=== PATIENT | female | born 1985 ===

== ENCOUNTER 2020-09-22 10:39 | Emergency (ER) | payer MEDICAID, SELFPAY ==
--- NOTE | ~2020-09-22 | CT_ITS ---
EXAMINATION: CT ABDOMEN AND PELVIS WITHOUT CONTRAST CLINICAL INFORMATION: Hematuria. Flank pain. COMPARISON: Most recent prior CT of the abdomen and pelvis done on 08/20/2018. TECHNIQUE: Multidetector volumetric imaging was performed from the superior aspect of the liver through the pubic symphysis. Sagittal and coronal reformatted images were obtained on the technologist's workstation. This CT examination was performed using dose optimization techniques as appropriate, variously including the following: *Automated exposure control *Adjustment of mA and/or kV according to patient size (this includes techniques or standardized protocols for targeted exams where dose is matched to indication/reason for exam; i.e. extremities or head) *Use of iterative reconstruction technique DLP: 1039.0 mGy-cm FINDINGS: LUNG BASES: The visualized lung bases are unremarkable. LIVER, GALLBLADDER, AND BILIARY TREE: The liver is normal in size, shape, and attenuation. No focal hepatic lesion or biliary ductal dilatation is present. The gallbladder is surgically absent. PANCREAS: Unremarkable. SPLEEN: Unremarkable. ADRENAL GLANDS: Unremarkable. KIDNEYS AND URETERS: The kidneys are normal in size, shape, and attenuation. No perinephric stranding. Bilateral punctate 1 mm or smaller nonobstructing renal calculi are noted without evidence of any obstruction. BLADDER: Suboptimally distended, grossly unremarkable. GASTROINTESTINAL TRACT: Colonic diverticulosis related changes are noted within the sigmoid colon. The remainder of the large bowel is unremarkable. The appendix is visualized at right lower quadrant and is unremarkable. The small bowel loops are decompressed. The stomach is decompressed. ABDOMINAL WALL: No significant hernia is appreciated. LYMPH NODES: Normal. VASCULAR: Unremarkable. PELVIC VISCERA: There is no pelvic mass present. There is no free fluid and/or free air present. OSSEOUS STRUCTURES: Unremarkable. CT/CT abdomen pelvis wo con IMPRESSION: Tiny punctate bilateral nonobstructing renal calculi without evidence of any obstruction. Colonic diverticulosis. Surgically absent gallbladder and decompressed biliary tree.
[2020-09-22 10:52] VITALS: RESP 16; TEMP 36.8; O2SAT 99; BMI 44.2
--- NOTE | 2020-09-22 10:54 | PC.NURSE ---
unable to obtain bp pt had to run to bathroom
[2020-09-22 11:52] LABS: MANUAL DIFF FLAG NO
[2020-09-22 11:58] LABS: Basophils Absolute Auto 0.1 X10*3/uL (0.0-0.2); Basophils Percent Auto 0.4 % (0-2); Eosinophils Absolute Auto 0.2 X10*3/uL (0.0-0.4); Eosinophils Percent Auto 1.1 % (0-4); Hematocrit 43.6 % (37-47); Hemoglobin 14.8 g/dl (12.0-16.0); Imm Gran Abs Auto 0.05 X10*3/uL (0.00-0.03); Imm Gran Pct Auto 0.3 % (0.0-0.4); Lymphocytes Absolute Auto 2.9 X10*3/uL (1.2-4.9); Lymphocytes Percent Auto 18.5 % (20-40); Mean Corpuscular HGB Conc 33.9 g/dl (31.0-35.0); Mean Corpuscular Hemoglobin 29.8 pg (27.0-33.0); Mean Corpuscular Volume 87.9 fL (80-98); Mean Platelet Volume 9.3 fL (9.4-12.3); Monocytes Absolute Auto 0.6 X10*3/uL (0.1-1.2); Monocytes Percent Auto 3.7 % (2-11); Platelet Count 326 X10*3/uL (160-400); Red Blood Count 4.96 X10*6/uL (4.20-5.50); Red Cell Distribution Width 12.7 % (11.0-16.0); White Blood Count 15.8 X10*3/uL (4.8-10.8)
[2020-09-22 12:07] LABS: Appearance Urine HAZY; Color Urine STRAW; Glucose Urine UA NEG (NEG); Leukocyte Esterase Urine 2+ (NEG); Nitrite Urine NEG (NEG); Specific Gravity - Urine <= 1.005 (1.005-1.025); UACC Culture Trigger YES; Urine Blood 3+ (NEG); Urine Ketones NEG (NEG); Urine Protein 2+ MG/DL (NEG-TRACE)
[2020-09-22 12:08] LABS: UPreg QC Valid YES; Urine Pregnancy NEGATIVE (NEGATIVE)
[2020-09-22 12:15] LABS: Bacteria Urine TRACE /LPF; Squamous Epithelial Cell Urine 1+ /LPF; WBC Urine 30-49 /HPF (0-4)
[2020-09-22 12:55] LABS: Alanine Aminotransferase 9 U/L (0-31); Albumin Level 4.2 g/dL (3.5-5.0); Alkaline Phosphatase 93 U/L (39-117); Anion Gap 13 (12-20); Aspartate Amino Transferase 12 U/L (5-31); Bilirubin Total 0.6 mg/dL (0.0-1.0); Blood Urea Nitrogen 8 mg/dL (9-16); Calcium 9.4 mg/dL (8.4-10.2); Carbon Dioxide 23 mmol/L (22-29); Chloride 106 mmol/L (96-108); Creatinine Clr Calc Pharmacy 109.1; Estimated Glomerular Filt Rate > 60; Glucose Random 101 mg/dL (60-115); Potassium 4.1 mmol/L (3.3-5.1); Sodium 138 mmol/L (135-145); Total Protein 7.2 g/dL (6.5-8.0)
[2020-09-22 13:23] LABS: Lipase 33 U/L (8-78)
[2020-09-22 14:14] VITALS: BP 162/96; RESP 16; O2SAT 99
--- NOTE | 2020-09-22 14:14 | ED_ITS ---
HPI - Abdominal Pain General Chief Complaint: Abdominal Pain Stated Complaint: QUEST UTI Time Seen by Provider: 09/22/20 12:55 Source: patient Limitations: no limitations History of Present Illness HPI narrative: This is a 35-year-old female who after waking up this morning around 630 and urinating, noted that she had severe pain in her pelvic area, and has noted hematuria. Patient states the pain is worse with urination, but is constant though it does seem to get worse and waves, seems is somewhat worse on the left side. She has had nausea but no vomiting. She denies any constipation or diarrhea. She does have discomfort with urination and feeling like she has to urinate frequently. 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 Patient denies any fever. She denies any cough, shortness of breath, chest pain. Related Data Previous Rx's Medication Instructions Recorded cefdinir 300 mg PO BID #14 cap 09/22/20 ondansetron 4 mg PO Q6H PRN #10 tab 09/22/20 phenazopyridine [Pyridium] 200 mg PO TID PRN #6 tab 09/22/20 tramadol 50 - 100 mg PO Q6H PRN #20 tab 09/22/20 Allergies Allergy/AdvReac Type Severity Reaction Status Date / Time ibuprofen [From Motrin] Allergy Unknown SWELLING, Unverified 11/30/19 17:58 hives, itching latex [Latex] Allergy Unknown RASH Unverified 11/30/19 17:58 walnut Allergy Unknown HIVES Unverified 11/30/19 17:58 Latex Allergy Unknown rash Uncoded 07/15/12 00:00 latex Allergy Unknown Uncoded 12/08/18 00:00 oxycodone Allergy Unknown hives Uncoded 12/08/18 00:00 peanuts/nuts Allergy Unknown Uncoded 12/08/18 00:00 Review of Systems Review of Systems Yes all other systems are reviewed and are negative Constitutional: Reports as per HPI and Denies fever(s) Eyes: Reports as per HPI and Reports no additional eye complaints Reports system reviewed and no additional complaints, except as documented, Reports as per HPI, Denies nasal congestion, Denies nasal discharge and Denies sore throat Cardiovascular: Reports as per HPI, Denies chest pain and Denies dyspnea Respiratory: Reports as per HPI, Denies cough and Denies dyspnea Gastrointestinal: Reports as per HPI, Reports abdominal pain (Lower), Denies diarrhea, Reports nausea and Denies vomiting Genitourinary: Reports as per HPI, Denies abnormal vaginal bleeding, Denies hematuria, Denies urinary frequency and Reports dysuria Comments: Patient notes urinary frequency, urgency Musculoskeletal: Reports no additional musculoskeletal complaints and Denies numbness Skin/Breast: Reports as per HPI and Denies rash Reports as per HPI, Denies focal weakness, Denies numbness and Denies Sensory deficit (Neuro) Psychiatric: Reports no additional psychiatric complaints and Reports as per HPI Endocrine: Reports no additional endocrine complaints and Reports as per HPI Hematologic/Lymphatic: Reports no additional hematologic/lymphatic complaints, Reports as per HPI and Reports other (No peripheral edema) Physical Exam Vital Signs: Vital Signs: Last Vital Signs Temp 98.3 F 09/22/20 10:52 Pulse 80 09/22/20 16:23 Resp 16 09/22/20 16:23 BP 129/80 09/22/20 16:23 Pulse Ox 99 09/22/20 14:14 Body Mass Index 44.2 Const: Other: Moderately obese, more comfortable sitting up and leaning slightly forward, has discomfort lying back General: cooperative, no acute distress and alert Orientation/consciousness: patient oriented x3 HENMT: Head: Yes normal to inspection Eyes: General: appearance normal, both eyes and all related structures Eyelids: Yes eyelids normal Conjunctivae: conjunctivae normal Pupils: Equal, round and reactive pupils present Neck: Neck: Yes normal visual inspection and Yes supple Chest: Chest palpation & inspection: normal inspection of the chest Resp: Effort & Inspection: normal respiratory effort Auscultation: clear to auscultation bilaterally Cardio: Rate: regular rate Rhythm: regular rhythm Heart sounds: S1 normal heart sound present, S2 normal heart sound present, no gallops, no murmurs and no rubs GI: Palpation (GI): Soft to palpation, Tenderness to palpation present (GI) (Minimally tender suprapubic area, no significant focal tenderness otherwise) and Other GI palpation findings present (Non-distended) Auscultation: normal bowel sounds Skin: General skin exam: no rashes or lesions noted Neuro: General: patient oriented x3, no focal motor deficits and CN's II-XI intact bilaterally Cranial nerves: Yes Equal, round and reactive pupils present Cognition (Neuro): normal cognition Motor exam (neuro): 5/5 motor strength present throughout Sensory Exam: No Sensory deficit (Neuro) Extrem: General: Yes normal to inspection and Yes no pedal edema Psych: Appearance: grossly normal Affect: normal affect MDM - Abdominal Pain MDM Narrative Medical decision making narrative: Patient with severe low back pain and pelvic pain, with associated hematuria and dysuria. Patient has history of UTI but has never had pain this severe from it. Patient did initially appear uncom fortable. Urinalysis showed evidence of infection and hematuria. CT of the abdomen pelvis was negative for any acute pathology, no evidence of ureterolith. Patient is being prescribed cefdinir. Her pain was controlled with Dilaudid in the ED, in her nausea was controlled with Zofran, and later Reglan. The patient seems to have had mild localized erythema and pruritus after injection of the Reglan. This resolved without treatment. Lab Data Attestation: I reviewed the patient's lab results. Result diagrams: 09/22/20 11:47 09/22/20 11:47 Labs: Lab Results 09/22/20 09/22/20 09/22/20 Range/Units 11:47 11:47 11:52 WBC 15.8 H (4.8-10.8) X10*3/uL RBC 4.96 (4.20-5.50) X10*6/uL Hgb 14.8 (12.0-16.0) g/dl Hct 43.6 (37-47) % MCV 87.9 (80-98) fL MCH 29.8 (27.0-33.0) pg MCHC 33.9 (31.0-35.0) g/dl RDW 12.7 (11.0-16.0) % Plt Count 326 (160-400) X10*3/uL MPV 9.3 L (9.4-12.3) fL Immature Gran % (Auto) 0.3 (0.0-0.4) % Neut % (Auto) 76.0 H (45-73) % Lymph % (Auto) 18.5 L (20-40) % [place] % (Auto) 3.7 (2-11) % Eos % (Auto) 1.1 (0-4) % Baso % (Auto) 0.4 (0-2) % Lymph # (Auto) 2.9 (1.2-4.9) X10*3/uL [place] # (Auto) 0.6 (0.1-1.2) X10*3/uL Eos # (Auto) 0.2 (0.0-0.4) X10*3/uL Baso # (Auto) 0.1 (0.0-0.2) X10*3/uL Abs Immat Gran (auto) 0.05 H (0.00-0.03) X10*3/uL Absolute Neuts (auto) 12.0 H (2.0-8.3) X10*3/uL Absolute Nucleated RBC 0.000 (0.0-0.012) X10*3/uL Nucleated RBC % (auto) 0.0 (0.0-0.2) /100WBC Sodium 138 (135-145) mmol/L Potassium 4.1 (3.3-5.1) mmol/L Chloride 106 (96-108) mmol/L Carbon Dioxide 23 (22-29) mmol/L Anion Gap 13 (12-20) BUN 8 L (9-16) mg/dL Creatinine 0.88 (0.5-1.4) mg/dL Estim Creat Clear Calc 109.1 Estimated GFR > 60 Random Glucose 101 (60-115) mg/dL Calcium 9.4 (8.4-10.2) mg/dL Total Bilirubin 0.6 (0.0-1.0) mg/dL AST 12 (5-31) U/L ALT 9 (0-31) U/L Alkaline Phosphatase 93 (39-117) U/L Total Protein 7.2 (6.5-8.0) g/dL Albumin 4.2 (3.5-5.0) g/dL Lipase 33 (8-78) U/L Urine Color Urine Appearance Urine pH (5.0-8.0) Ur Specific [place] (1.005-1.025) Urine Protein (NEG-TRACE) MG/DL Urine Glucose (UA) (NEG) MG/DL Urine Ketones (NEG) MG/DL Urine Blood (NEG) Urine Nitrite (NEG) Ur Leukocyte Esterase (NEG) Urine RBC (0) /HPF Urine WBC (0-4) /HPF Ur Squamous Epith Cells /LPF Urine Bacteria /LPF Urine Test NEGATIVE (NEGATIVE) 09/22/20 Range/Units 11:53 WBC (4.8-10.8) X10*3/uL RBC (4.20-5.50) X10*6/uL Hgb (12.0-16.0) g/dl Hct (37-47) % MCV (80-98) fL MCH (27.0-33.0) pg MCHC (31.0-35.0) g/dl RDW (11.0-16.0) % Plt Count (160-400) X10*3/uL MPV (9.4-12.3) fL Immature Gran % (Auto) (0.0-0.4) % Neut % (Auto) (45-73) % Lymph % (Auto) (20-40) % [place] % (Auto) (2-11) % Eos % (Auto) (0-4) % Baso % (Auto) (0-2) % Lymph # (Auto) (1.2-4.9) X10*3/uL [place] # (Auto) (0.1-1.2) X10*3/uL Eos # (Auto) (0.0-0.4) X10*3/uL Baso # (Auto) (0.0-0.2) X10*3/uL Abs Immat Gran (auto) (0.00-0.03) X10*3/uL Absolute Neuts (auto) (2.0-8.3) X10*3/uL Absolute Nucleated RBC (0.0-0.012) X10*3/uL Nucleated RBC % (auto) (0.0-0.2) /100WBC Sodium (135-145) mmol/L Potassium (3.3-5.1) mmol/L Chloride (96-108) mmol/L Carbon Dioxide (22-29) mmol/L Anion Gap (12-20) BUN (9-16) mg/dL Creatinine (0.5-1.4) mg/dL Estim Creat Clear Calc Estimated GFR Random Glucose (60-115) mg/dL Calcium (8.4-10.2) mg/dL Total Bilirubin (0.0-1.0) mg/dL AST (5-31) U/L ALT (0-31) U/L Alkaline Phosphatase (39-117) U/L Total Protein (6.5-8.0) g/dL Albumin (3.5-5.0) g/dL Lipase (8-78) U/L Urine Color STRAW Urine Appearance HAZY Urine pH 6.0 (5.0-8.0) Ur Specific [place] <= 1.005 (1.005-1.025) Urine Protein 2+ H (NEG-TRACE) MG/DL Urine Glucose (UA) NEG (NEG) MG/DL Urine Ketones NEG (NEG) MG/DL Urine Blood 3+ H (NEG) Urine Nitrite NEG (NEG) Ur Leukocyte Esterase 2+ H (NEG) Urine RBC 5-9 H (0) /HPF Urine WBC 30-49 H (0-4) /HPF Ur Squamous Epith Cells 1+ /LPF Urine Bacteria TRACE /LPF Urine Test (NEGATIVE) Imaging Data CT of the abdomen and pelvis: Radiologist's impression: No acute pathology. No evidence of ureterolith. Discharge Plan Discharge Clinical Impression: Acute hemorrhagic cystitis Patient Disposition: Home, Self-Care Instructions: Urinary Tract Infection in Women (ED) Additional Instructions: Drink plenty of water. Take the antibiotics and Pyridium as prescribed. Return for any new or worsened symptoms such as fever, increased pain, uncontrolled vomiting Prescriptions: New cefdinir 300 mg capsule 300 mg PO BID Qty: 14 RF: 0 phenazopyridine [Pyridium] 200 mg tablet 200 mg PO TID PRN (Reason: pain) Qty: 6 RF: 0 tramadol 50 mg tablet 50 - 100 mg PO Q6H PRN (Reason: pain) Qty: 20 RF: 0 ondansetron 4 mg tablet,disintegrating 4 mg PO Q6H PRN (Reason: nausea and vomiting) Qty: 10 RF: 0 Interventions: ED Discharge Assessment Last Done: 09/22/20 17:29 Discharge Date/Time: 09/22/20 17:28 [facility] Past Medical History Medical History (Updated 09/22/20 @ 17:11 by Aime Amaya MD) Asthma Social History Social History Advance Directives: Yes Advance Directives Information Provided: Yes Advance Directives on File: No
[2020-09-22] MEDS: HYDROmorphone HCl 1 MG/ML SYRINGE IVPUSH ×2 (14:30→16:22)
[2020-09-22] MEDS: ondansetron HCL 4 MG/2 ML VIAL IVPUSH (14:30)
[2020-09-22] MEDS: Metoclopramide HCl 10 MG/2 ML VIAL IVPUSH (16:22)
[2020-09-22 16:23] VITALS: BP 129/80; PULSE 80; RESP 16
[2020-09-22] MEDS: cephALEXin 500 MG CAPSULE PO (17:20)
== END 2020-09-22 17:28 | disposition home or self-care (01) ==
PROVIDERS: Emergency Medicine; Emergency Provider Emergency Medicine
DX: N30.01 Acute cystitis with hematuria (principal); Z87.440 Personal history of urinary (tract) infections
CPT/HCPCS: 36415; 74176; 80053; 81001; 81003; 81025; 83690; 85025; 87086; 96374; 96375; 96376; 99284; J1170; J2405; J2765

== ENCOUNTER 2021-04-01 20:54 | Emergency (ER) | payer MEDICAID, SELFPAY ==
--- NOTE | ~2021-04-01 | CT_ITS ---
EXAMINATION: CT ABDOMEN AND PELVIS WITHOUT CONTRAST CLINICAL INFORMATION: Flank pain. COMPARISON: 09/22/2020 TECHNIQUE: Multidetector volumetric imaging was performed from the superior aspect of the liver through the pubic symphysis. Sagittal and coronal reformatted images were obtained on the technologist's workstation. This CT examination was performed using dose optimization techniques as appropriate, variously including the following: *Automated exposure control *Adjustment of mA and/or kV according to patient size (this includes techniques or standardized protocols for targeted exams where dose is matched to indication/reason for exam; i.e. extremities or head) *Use of iterative reconstruction technique DLP: 1166 mGy-cm FINDINGS: LUNG BASES: The visualized lung bases are unremarkable. LIVER, GALLBLADDER, AND BILIARY TREE: The liver is normal in size, shape, and attenuation. No focal hepatic lesion or biliary ductal dilatation is present. Cholecystectomy. PANCREAS: Unremarkable. SPLEEN: Unremarkable. ADRENAL GLANDS: Unremarkable. KIDNEYS AND URETERS: The kidneys are normal in size, shape, and attenuation. No hydronephrosis, hydroureter, or calculi seen. No perinephric stranding. BLADDER: Unremarkable. GASTROINTESTINAL TRACT: The small and large bowel are unremarkable. The appendix is unremarkable. ABDOMINAL WALL: No significant hernia is appreciated. LYMPH NODES: Normal. VASCULAR: Unremarkable. PELVIC VISCERA: The uterus and adnexa are unremarkable. OSSEOUS STRUCTURES: No acute or suspicious osseous abnormality. Bilateral sacroiliitis. CT/CT abdomen pelvis wo con IMPRESSION: No acute findings in the abdomen or pelvis. No hydronephrosis or nephrolithiasis. No inflammatory changes. Fleischner guidelines were followed.
[2021-04-01 21:20] VITALS: BP 149/103; PULSE 116; RESP 16; TEMP 37.1; O2SAT 98; BMI 41.6
[2021-04-01 22:08] LABS: IDNOW Serial# 9DD0AD1C; Strep A Nucleic Acid Negative (Negative)
[2021-04-01 22:30] LABS: COVID-19 Test Negative (Negative)
[2021-04-02 02:30] VITALS: BP 140/86; PULSE 103; RESP 16; TEMP 36.9; O2SAT 98
--- NOTE | 2021-04-02 02:33 | ED.GENADULT ---
HPI - General Adult General Chief complaint: General Medical Stated complaint: Covid Symptoms, back pain Time Seen by Provider: 04/01/21 21:57 History of Present Illness HPI narrative: Patient is a 35-year-old female positive generalized malaise weakness fever sore throat had rapid strep done outpatient basis was negative. Now is having flank pain. Now is having back pain. Positive nausea. Patient from home. Had COVID vaccine x1 dose only. Fever on and off subjective. Patient is sent in for further evaluation. Claims her menstruation has been regular. No history of kidney stones. No chest pain or diaphoresis. No radiation of the flank pain on the right side. No change in bowel movement positive diarrhea that is brown in color. No blood. Patient from home. Related Data Previous Rx's Medication Instructions Recorded cefdinir 300 mg capsule 300 mg PO BID #14 cap 09/22/20 ondansetron 4 mg disintegrating 4 mg PO Q6H PRN #10 tab 09/22/20 tablet phenazopyridine 200 mg tablet 200 mg PO TID PRN #6 tab 09/22/20 (Pyridium) tramadol 50 mg tablet 50 - 100 mg PO Q6H PRN #20 tab 09/22/20 cyclobenzaprine 10 mg tablet 10 mg PO TID PRN #14 tab 04/02/21 Allergies Allergy/AdvReac Type Severity Reaction Status Date / Time ibuprofen [From Motrin] Allergy Unknown SWELLING, Verified 04/02/21 03:03 hives, itching latex [Latex] Allergy Unknown RASH Verified 04/02/21 03:03 walnut Allergy Unknown HIVES Verified 04/02/21 03:03 bee pollen [bee stings] Allergy Anaphylaxis Verified 04/02/21 03:03 Latex Allergy Unknown rash Uncoded 04/02/21 03:03 latex Allergy Unknown Rash Uncoded 04/02/21 03:03 oxycodone Allergy Unknown hives Uncoded 04/02/21 03:03 peanuts/nuts Allergy Unknown Swelling Uncoded 04/02/21 03:03 Review of Systems Review of Systems: Positive flank pain All system reviewed otherwise negative Yes all other systems are reviewed and are negative [facility] Past Medical History Attestation statement: The following information was validated with the patient. Medical History Asthma Social History Social History Advance Directives: No Patient : No Physical Exam Vital Signs: Vital Signs: Last Vital Signs Temp 98.3 F 04/02/21 05:08 Pulse 105 H 04/02/21 05:08 Resp 19 04/02/21 05:08 BP 129/66 04/02/21 05:08 Pulse Ox 97 04/02/21 05:08 BMI result Body Mass Index 41.6 Appearance: Alert. Oriented X3. No acute distress. Eyes: Pupils equal, round and reactive to light. ENT: Pharynx normal. Neck: Normal inspection. Neck supple. No lymph nodes noted. No crepitus CVS: Normal heart rate and rhythm. Pulses normal. Normal S1 and S2 Respiratory: No respiratory distress. Breath sounds normal. No Wheezing. No rales Abdomen: Soft and nontender. No rigidity. No distention. good BS x4 Skin: Skin warm and dry. Normal skin color. Normal skin turgor. Extremities: No lower extremity edema. Neurovascular intact to all extremities. No Lacerations. No Rash Neuro: Oriented X 3. No motor deficit. No sensory deficit. Moving all extermities. No slurred speech Medical Decision Making MDM Narrative Medical decision making narrative: CT scan of the abdomen pelvis negative for any acute evidence of kidney stone. Patient's white count is 14. Creatinine is normal. COVID test was negative. test was negative unlikely be ectopic. Electrolytes unremarkable. Question musculoskeletal pain. Likely viral syndrome. Will discharge patient home. In stable condition Lab Data Result diagrams: 04/02/21 02:40 04/02/21 02:40 Labs: Lab Results 04/01/21 04/01/21 04/02/21 Range/Units 21:29 21:31 02:40 WBC 14.0 H (4.8-10.8) X10*3/uL RBC 5.03 (4.20-5.50) X10*6/uL Hgb 15.1 (12.0-16.0) g/dl Hct 45.2 (37.0-47.0) % MCV 89.9 (80.0-98.0) fL MCH 30.0 (27.0-33.0) pg MCHC 33.4 (31.0-35.0) g/dl RDW 13.4 (11.0-16.0) % Plt Count 387 (160-400) X10*3/uL MPV 9.0 L (9.4-12.3) fL Immature Gran % (Auto) 0.4 (0.0-0.4) % Neut % (Auto) 61.5 (45-73) % Lymph % (Auto) 30.5 (20-40) % [place] % (Auto) 5.3 (2-11) % Eos % (Auto) 1.9 (0-4) % Baso % (Auto) 0.4 (0-2) % Lymph # (Auto) 4.3 (1.2-4.9) X10*3/uL [place] # (Auto) 0.7 (0.1-1.2) X10*3/uL Eos # (Auto) 0.3 (0.0-0.4) X10*3/uL Baso # (Auto) 0.1 (0.0-0.2) X10*3/uL Abs Immat Gran (auto) 0.05 H (0.00-0.03) X10*3/uL Absolute Neuts (auto) 8.6 H (2.0-8.3) x10*3/uL Absolute Nucleated RBC 0.000 (0.0-0.012) X10*3/uL Nucleated RBC % (auto) 0.0 (0.0-0.2) /100WBC Sodium (135-145) mmol/L Potassium (3.3-5.1) mmol/L Chloride (96-108) mmol/L Carbon Dioxide (22-29) mmol/L Anion Gap (12-20) BUN (9-16) mg/dL Creatinine (0.5-1.4) mg/dL Estim Creat Clear Calc Estimated GFR Random Glucose (60-115) mg/dL Calcium (8.4-10.2) mg/dL Beta HCG, Quant mIU/mL Urine Color Urine Appearance Urine pH (5.0-8.0) Ur Specific [place] (1.005-1.025) Urine Protein (NEG-TRACE) MG/DL Urine Glucose (UA) (NEG) MG/DL Urine Ketones (NEG) MG/DL Urine Blood (NEG) Urine Nitrite (NEG) Ur Leukocyte Esterase (NEG) COVID-19 (SHERRI) Negative (Negative) COVID-19 Clin Com See Note S. pyogenes GrpA AMOR Negative (Negative) 04/02/21 04/02/21 Range/Units 02:40 05:14 WBC (4.8-10.8) X10*3/uL RBC (4.20-5.50) X10*6/uL Hgb (12.0-16.0) g/dl Hct (37.0-47.0) % MCV (80.0-98.0) fL MCH (27.0-33.0) pg MCHC (31.0-35.0) g/dl RDW (11.0-16.0) % Plt Count (160-400) X10*3/uL MPV (9.4-12.3) fL Immature Gran % (Auto) (0.0-0.4) % Neut % (Auto) (45-73) % Lymph % (Auto) (20-40) % [place] % (Auto) (2-11) % Eos % (Auto) (0-4) % Baso % (Auto) (0-2) % Lymph # (Auto) (1.2-4.9) X10*3/uL [place] # (Auto) (0.1-1.2) X10*3/uL Eos # (Auto) (0.0-0.4) X10*3/uL Baso # (Auto) (0.0-0.2) X10*3/uL Abs Immat Gran (auto) (0.00-0.03) X10*3/uL Absolute Neuts (auto) (2.0-8.3) x10*3/uL Absolute Nucleated RBC (0.0-0.012) X10*3/uL Nucleated RBC % (auto) (0.0-0.2) /100WBC Sodium 142 (135-145) mmol/L Potassium 4.0 (3.3-5.1) mmol/L Chloride 108 (96-108) mmol/L Carbon Dioxide 23 (22-29) mmol/L Anion Gap 15 (12-20) BUN 9 (9-16) mg/dL Creatinine 0.84 (0.5-1.4) mg/dL Estim Creat Clear Calc 110.3 Estimated GFR > 60 Random Glucose 109 (60-115) mg/dL Calcium 9.4 (8.4-10.2) mg/dL Beta HCG, Quant < 2 mIU/mL Urine Color YELLOW Urine Appearance HAZY Urine pH 5.5 (5.0-8.0) Ur Specific [place] >= 1.030 H (1.005-1.025) Urine Protein NEG (NEG-TRACE) MG/DL Urine Glucose (UA) NEG (NEG) MG/DL Urine Ketones NEG (NEG) MG/DL Urine Blood NEG (NEG) Urine Nitrite NEG (NEG) Ur Leukocyte Esterase NEG (NEG) COVID-19 (SHERRI) (Negative) COVID-19 Clin Com S. pyogenes GrpA AMOR (Negative) Discharge Plan Discharge Clinical Impression: Acute viral syndrome, Back pain Patient Disposition: Home, Self-Care Instructions: Viral Syndrome (ED), Back Pain (ED) Prescriptions: New cyclobenzaprine 10 mg tablet 10 mg PO TID PRN (Reason: pain) Qty: 14 RF: 0 No Action cefdinir 300 mg capsule 300 mg PO BID Qty: 14 RF: 0 phenazopyridine [Pyridium] 200 mg tablet 200 mg PO TID PRN (Reason: pain) Qty: 6 RF: 0 tramadol 50 mg tablet 50 - 100 mg PO Q6H PRN (Reason: pain) Qty: 20 RF: 0 ondansetron 4 mg tablet,disintegrating 4 mg PO Q6H PRN (Reason: nausea and vomiting) Qty: 10 RF: 0 Referrals: Physician,Unknown J [Primary Care Provider] - 2 days
[2021-04-02 02:44] LABS: MANUAL DIFF FLAG NO
[2021-04-02 02:45] LABS: Basophils Absolute Auto 0.1 X10*3/uL (0.0-0.2); Basophils Percent Auto 0.4 % (0-2); Eosinophils Absolute Auto 0.3 X10*3/uL (0.0-0.4); Eosinophils Percent Auto 1.9 % (0-4); Hematocrit 45.2 % (37.0-47.0); Hemoglobin 15.1 g/dl (12.0-16.0); Imm Gran Abs Auto 0.05 X10*3/uL (0.00-0.03); Imm Gran Pct Auto 0.4 % (0.0-0.4); Lymphocytes Absolute Auto 4.3 X10*3/uL (1.2-4.9); Lymphocytes Percent Auto 30.5 % (20-40); Mean Corpuscular HGB Conc 33.4 g/dl (31.0-35.0); Mean Corpuscular Volume 89.9 fL (80.0-98.0); Monocytes Absolute Auto 0.7 X10*3/uL (0.1-1.2); Monocytes Percent Auto 5.3 % (2-11); Neutrophils Absolute Auto 8.6 x10*3/uL (2.0-8.3); Neutrophils Percent Auto 61.5 % (45-73); Platelet Count 387 X10*3/uL (160-400); Red Blood Count 5.03 X10*6/uL (4.20-5.50); Red Cell Distribution Width 13.4 % (11.0-16.0)
[2021-04-02 03:04] VITALS: RESP 19
[2021-04-02] MEDS: HYDROmorphone HCl 0.5 MG/0.5 ML SYRINGE IVPUSH (03:04)
[2021-04-02] MEDS: 0.9 % Sodium Chloride 1,000 ML 999 ML IV (03:04)
[2021-04-02 03:10] LABS: Anion Gap 15 (12-20); Blood Urea Nitrogen 9 mg/dL (9-16); Calcium 9.4 mg/dL (8.4-10.2); Carbon Dioxide 23 mmol/L (22-29); Chloride 108 mmol/L (96-108); Creatinine Clr Calc Pharmacy 110.3; Estimated Glomerular Filt Rate > 60; Glucose Random 109 mg/dL (60-115); Sodium 142 mmol/L (135-145)
[2021-04-02] MEDS: ondansetron HCL 4 MG/2 ML VIAL IVPUSH (03:12)
[2021-04-02 03:35] LABS: HCG Quantitative < 2 mIU/mL
[2021-04-02 04:13] VITALS: BP 118/60; PULSE 96; TEMP 37; O2SAT 100
--- NOTE | 2021-04-02 04:38 | PC.NURSE ---
Pt reports inability to urinate. This RN ordered bladder scan, Ezra PCT aware, to carry out order.
[2021-04-02 05:08] VITALS: BP 129/66; PULSE 105; RESP 19; TEMP 36.8; O2SAT 97
--- NOTE | 2021-04-02 05:13 | PC.NURSE ---
Pt reports return of pain to 9/10 at this time. Pt ambulates with steady independent gait to bathroom and provides urine sample. Bladder scan no longer needed.
--- NOTE | 2021-04-02 05:26 | PC.NURSE ---
Dr Wren aware of pt's c/o return of pain
[2021-04-02 05:32] LABS: Appearance Urine HAZY; Color Urine YELLOW; Glucose Urine UA NEG (NEG); Leukocyte Esterase Urine NEG (NEG); Nitrite Urine NEG (NEG); PH 5.5 (5.0-8.0); Specific Gravity - Urine >= 1.030 (1.005-1.025); Urine Blood NEG (NEG); Urine Ketones NEG (NEG); Urine Protein NEG (NEG-TRACE)
[2021-04-02 06:38] VITALS: BP 119/62; PULSE 95; RESP 18; O2SAT 98
== END 2021-04-02 06:48 | disposition home or self-care (01) ==
PROVIDERS: Emergency Provider Emergency Medicine Emergency Medical Services
DX: B34.9 Viral infection, unspecified (principal); R50.9 Fever, unspecified; J02.9 Acute pharyngitis, unspecified; R10.9 Unspecified abdominal pain; M54.50 Low back pain, unspecified; Z20.822 Contact with and (suspected) exposure to COVID-19; Z79.899 Other long term (current) drug therapy
CPT/HCPCS: 36415; 51798; 74176; 80048; 81003; 84702; 85025; 87635; 87651; 96361; 96374; 96375; 99284; J1170; J2405

== ENCOUNTER 2022-04-01 21:31 | Emergency (ER) | payer MEDICAID, SELFPAY ==
--- NOTE | ~2022-04-01 | CT_ITS ---
EXAMINATION: CT ABDOMEN AND PELVIS WITH CONTRAST CLINICAL INFORMATION: Nausea, vomiting, diarrhea. Abdominal pain. COMPARISON: 04/02/2021 TECHNIQUE: Multidetector volumetric images were obtained from the superior aspect of the liver through the pubic symphysis following administration 85 mL of Omnipaque 350 intravenous contrast. Sagittal and coronal reformatted images were obtained on the technologist's workstation. Oral contrast: No This CT examination was performed using dose optimization techniques as appropriate, variously including the following: *Automated exposure control *Adjustment of mA and/or kV according to patient size (this includes techniques or standardized protocols for targeted exams where dose is matched to indication/reason for exam; i.e. extremities or head) *Use of iterative reconstruction technique DLP: 1036 mGy-cm FINDINGS: LUNG BASES: The visualized lung bases are unremarkable. LIVER, GALLBLADDER, AND BILIARY TREE: The liver is normal in size, shape, and attenuation. No focal hepatic lesion or biliary ductal dilatation is present. Cholecystectomy. PANCREAS: Unremarkable. SPLEEN: Unremarkable. ADRENAL GLANDS: Unremarkable. KIDNEYS AND URETERS: The kidneys are normal in size, shape, and attenuation. No hydronephrosis, hydroureter, or calculi seen. No perinephric stranding. BLADDER: Decompressed with no gross abnormality. GASTROINTESTINAL TRACT: The small and large bowel are unremarkable. The appendix is unremarkable. ABDOMINAL WALL: No significant hernia is appreciated. LYMPH NODES: Normal. VASCULAR: Unremarkable. PELVIC VISCERA: The uterus and adnexa are unremarkable. OSSEOUS STRUCTURES: No acute or suspicious osseous abnormality. Small endplate osteophytes. Bilateral sclerosis along the sacroiliac joints. CT/CT abdomen pelvis w IV con IMPRESSION: No acute findings in the abdomen or pelvis. No inflammatory changes. Bilateral sacroiliitis. Similar to prior. Fleischner guidelines were followed.
[2022-04-01 21:41] VITALS: BP 161/92; PULSE 102; RESP 20; TEMP 36.9; O2SAT 100; BMI 39.8
[2022-04-01 22:30] LABS: MANUAL DIFF FLAG NO
[2022-04-01 22:31] LABS: Basophils Absolute Auto 0.1 X10*3/uL (0.0-0.2); Basophils Percent Auto 0.4 % (0-2); Eosinophils Absolute Auto 0.3 X10*3/uL (0.0-0.4); Eosinophils Percent Auto 1.9 % (0-4); Hemoglobin 14.4 g/dl (12.0-16.0); Imm Gran Abs Auto 0.07 X10*3/uL (0.00-0.03); Imm Gran Pct Auto 0.5 % (0.0-0.4); Lymphocytes Absolute Auto 4.1 X10*3/uL (1.2-4.9); Lymphocytes Percent Auto 26.1 % (20-40); Mean Corpuscular HGB Conc 33.5 g/dl (31.0-35.0); Mean Corpuscular Hemoglobin 29.9 pg (27.0-33.0); Mean Corpuscular Volume 89.4 fL (80.0-98.0); Mean Platelet Volume 9.1 fL (9.4-12.3); Monocytes Absolute Auto 0.8 X10*3/uL (0.1-1.2); Monocytes Percent Auto 5.1 % (2-11); Neutrophils Absolute Auto 10.2 x10*3/uL (2.0-8.3); Platelet Count 399 X10*3/uL (160-400); Red Blood Count 4.81 X10*6/uL (4.20-5.50); Red Cell Distribution Width 13.2 % (11.0-16.0); White Blood Count 15.5 X10*3/uL (4.8-10.8)
[2022-04-01 22:38] LABS: IDNOW Serial# 6674DD1D; Strep A Nucleic Acid Negative (Negative)
--- NOTE | 2022-04-01 22:40 | ED.GENADULT ---
HPI - General Adult General Chief complaint: Nausea/Vomiting/Diarrhea Stated complaint: vomiting, infection in lower intestine Time Seen by Provider: 04/01/22 22:24 Source: patient Mode of arrival: ambulatory History of Present Illness HPI narrative: 36-year-old female with past medical history of asthma, hemorrhagic cystitis, presenting to the ED complaining of diffuse abdominal pain /cramping, nausea, vomiting, and watery nonbloody diarrhea x1 week. Also reports generalized fatigue, myalgias, low-grade fever, LE edema and decreased p.o. intake. Denies CP/SOB, dysuria/hematuria, cough Onset (ago): week(s) Related Data Previous Rx's Medication Instructions Recorded cefdinir 300 mg capsule 300 mg PO BID #14 caps 09/22/20 ondansetron 4 mg disintegrating 4 mg PO Q6H PRN nausea and 09/22/20 tablet vomiting #10 tabs phenazopyridine 200 mg tablet 200 mg PO TID PRN pain 6 doses #6 09/22/20 (Pyridium) tabs tramadol 50 mg tablet 50 - 100 mg PO Q6H PRN pain #20 09/22/20 tabs cyclobenzaprine 10 mg tablet 10 mg PO TID PRN pain #14 tabs 04/02/21 Allergies Allergy/AdvReac Type Severity Reaction Status Date / Time ibuprofen [From Motrin] Allergy Unknown SWELLING, Verified 04/02/21 03:03 hives, itching latex [Latex] Allergy Unknown RASH Verified 04/02/21 03:03 walnut Allergy Unknown HIVES Verified 04/02/21 03:03 bee pollen [bee stings] Allergy Anaphylaxis Verified 04/02/21 03:03 Latex Allergy Unknown rash Uncoded 04/02/21 03:03 latex Allergy Unknown Rash Uncoded 04/02/21 03:03 oxycodone Allergy Unknown hives Uncoded 04/02/21 03:03 peanuts/nuts Allergy Unknown Swelling Uncoded 04/02/21 03:03 Review of Systems Review of Systems: Constitutional: + Fever, No Chills, No Fatigue, No Malaise ENT/Mouth: No Ear Pain, No Nasal Congestion, No Sinus Pain, No Hoarseness, No sore throat, No Rhinorrhea, No Swallowing Difficulty Eyes: No Eye Pain, No Swelling, No Redness, No Vision Changes Cardiovascular: No Chest Pain, No SOB, No Edema, No Palpitations Respiratory: No Cough, No Sputum, No Dyspnea Gastrointestinal: + Nausea, + Vomiting, + Diarrhea, No Constipation, + Abdominal pain Genitourinary: No Dysuria, No Urinary Frequency, No Hematuria, No Urinary Incontinence/retention, No Flank Pain Musculoskeletal: No joint pain, + Myalgias, No Joint Swelling Skin: No Skin Lesions, No rash Neuro: No Weakness, No Numbness, No Paresthesias, No Loss of Consciousness, No Dizziness, No Headache Yes all other systems are reviewed and are negative Constitutional: Constitutional: Reports as per [facility] Past Medical History Attestation statement: The following information was validated with the patient. Medical History Asthma Social History Social History Alcohol intake: current Smoked in Last 30 Days: No Use of substances other than those prescribed or required for medical reasons: No Advance Directives: No Advance Directives Information Provided: No Patient : No Physical Exam ED Vital Signs: Vital Signs - 24 hr 04/01/22 21:41 04/02/22 01:02 Temperature 98.5 F 98.7 F Pulse Rate 102 H 95 Respiratory Rate 20 14 Blood Pressure 161/92 H 137/83 Pulse Oximetry 100 97 Oxygen Delivery Method Room Air Room Air BMI result Body Mass Index 39.8 Const General: cooperative and no acute distress Orientation/consciousness: patient oriented x3 Limitations: no limitations HENMT Head: Yes normal to inspection and Yes atraumatic Ears: hearing grossly normal bilaterally General nose exam: Normal external nose present Face and sinus: Yes normal facial exam Eyes General: appearance normal, both eyes and all related structures EOM: EOMs intact bilaterally Neck Neck: Yes normal visual inspection and Yes no meningeal signs Resp Effort & Inspection: normal respiratory effort and no respiratory distress Auscultation: clear to auscultation bilaterally Cardio Rate: regular rate Heart sounds: S1 normal heart sound present and S2 normal heart sound present GI Inspection: Yes normal to inspection Palpation (GI): Soft to palpation, Tenderness to palpation present (GI) in the epigastrum, periumbilically and suprapubicly; with no rebound tenderness, no guarding and not rigid General: Yes no CVA tenderness Back/Spine/Pelvis Back: no CVA tenderness Skin Rashes: no rashes Wounds: no wounds Neuro General: patient oriented x3, tone normal and no meningeal signs Gait exam (Neuro): Normal gait present Extrem General: Yes normal to inspection, Yes no pedal edema and Yes no calf tenderness Course Course Course Narrative: -110-- mild leukocytosis of 15.5 (appears chronic) > still low suspicion for severe sepsis. Labs otherwise reassuring. COVID-19/influenza/ RSV and rapid strep negative -0--ED care transferred to Dr. Casey pending lactic/blood Cx, UA, stool studies, CT/AP and re-evaluation Medications Administered Discontinued Medications Generic Name Dose Route Start Last Admin Trade Name Freq PRN Reason Stop Dose Admin Famotidine 20 mg 04/01/22 23:01 04/01/22 23:15 Famotidine/Pf 20 Mg/2 Ml Vial IVPUSH 04/01/22 23:02 20 mg ONCE ONE Administration Sodium Chloride 1,000 mls @ 999 mls/hr 04/01/22 23:00 04/01/22 23:15 Ns IV 04/02/22 00:00 999 mls/hr .Q1H1M CAPRICE Administration Morphine Sulfate 2 mg 04/02/22 00:05 04/02/22 00:15 Morphine Sulfate 2 Mg/Ml Cartridge IVPUSH 04/02/22 00:06 2 mg ONCE ONE Administration Protocol Ondansetron HCl 4 mg 04/01/22 23:01 04/01/22 23:16 Ondansetron Hcl 4 Mg/2 Ml Vial IVPUSH 04/01/22 23:02 4 mg ONCE ONE Administration Medical Decision Making Medical Decision Making [facility] Narrative: 36-year-old female with past medical history of asthma, hemorrhagic cystitis, presenting to the ED complaining of diffuse abdominal pain /cramping, nausea, vomiting, and watery nonbloody diarrhea x1 week. on exam mildly tachycardic likely from pain & dehydration, tearful, nontoxic, abdomen soft diffusely tender no rebound or guarding, no pitting edema. Concern for UTI vs colitis vs C.diff vs gastroenteritis vs food poisoning vs appendicitis/diverticulitis vs dehydration/metabolic abnormalities. Lower suspicion for ACS/ PE, DVT, CHF or renal stone low suspicion for severe sepsis plan: Labs, UA, stool studies, CT AP, IVF, IV Pepcid/Zofran, re-evaluate Please refer to course for remaining clinical decision making, interpretation of labs/imaging results, and discussions with consultants and/or family members. Differential Diagnosis Differential Diagnoses: The differential diagnosis associated with the presentation includes as above Admission/Observation Consideration of admission/observation: Escalation of care including admission/observation considered Lab Data MDM Lab Attestation statement: I reviewed the patient's lab results. 04/01/22 22:10 04/01/22 22:10 Labs: Lab Results 04/01/22 04/01/22 04/01/22 Range/Units 22:10 22:10 22:10 WBC 15.5 H (4.8-10.8) X10*3/uL RBC 4.81 (4.20-5.50) X10*6/uL Hgb 14.4 (12.0-16.0) g/dl Hct 43.0 (37.0-47.0) % MCV 89.4 (80.0-98.0) fL MCH 29.9 (27.0-33.0) pg MCHC 33.5 (31.0-35.0) g/dl RDW 13.2 (11.0-16.0) % Plt Count 399 (160-400) X10*3/uL MPV 9.1 L (9.4-12.3) fL Immature Gran % (Auto) 0.5 H (0.0-0.4) % Neut % (Auto) 66.0 (45-73) % Lymph % (Auto) 26.1 (20-40) % [place] % (Auto) 5.1 (2-11) % Eos % (Auto) 1.9 (0-4) % Baso % (Auto) 0.4 (0-2) % Lymph # (Auto) 4.1 (1.2-4.9) X10*3/uL [place] # (Auto) 0.8 (0.1-1.2) X10*3/uL Eos # (Auto) 0.3 (0.0-0.4) X10*3/uL Baso # (Auto) 0.1 (0.0-0.2) X10*3/uL Abs Immat Gran (auto) 0.07 H (0.00-0.03) X10*3/uL Absolute Neuts (auto) 10.2 H (2.0-8.3) x10*3/uL Absolute Nucleated RBC 0.000 (0.0-0.012) X10*3/uL Nucleated RBC % (auto) 0.0 (0.0-0.2) /100WBC Sodium (135-145) mmol/L Potassium (3.3-5.1) mmol/L Chloride (96-108) mmol/L Carbon Dioxide (22-29) mmol/L Anion Gap (12-20) BUN (9-16) mg/dL Creatinine (0.5-1.4) mg/dL Estim Creat Clear Calc Estimated GFR Random Glucose (60-115) mg/dL Calcium (8.4-10.2) mg/dL Magnesium (1.6-2.6) mg/dL Total Bilirubin (0.0-1.0) mg/dL Direct Bilirubin (0.0-0.5) mg/dL AST (5-31) U/L ALT (0-31) U/L Alkaline Phosphatase (39-117) U/L Total Creatine Kinase (26-140) U/L B-Natriuretic Peptide (<100) pg/mL Total Protein (6.5-8.0) g/dL Albumin (3.5-5.0) g/dL Lipase (8-78) U/L Influenza Type A (PCR) NEGATIVE (Negative) Influenza Type B (PCR) NEGATIVE (Negative) RSV RNA Qual (PCR) NEGATIVE (Negative) SARS-CoV-2 RNA (RT-PCR) NEGATIVE (Negative) S. pyogenes GrpA AMOR Negative (Negative) 04/01/22 04/01/22 Range/Units 22:10 23:10 WBC (4.8-10.8) X10*3/uL RBC (4.20-5.50) X10*6/uL Hgb (12.0-16.0) g/dl Hct (37.0-47.0) % MCV (80.0-98.0) fL MCH (27.0-33.0) pg MCHC (31.0-35.0) g/dl RDW (11.0-16.0) % Plt Count (160-400) X10*3/uL MPV (9.4-12.3) fL Immature Gran % (Auto) (0.0-0.4) % Neut % (Auto) (45-73) % Lymph % (Auto) (20-40) % [place] % (Auto) (2-11) % Eos % (Auto) (0-4) % Baso % (Auto) (0-2) % Lymph # (Auto) (1.2-4.9) X10*3/uL [place] # (Auto) (0.1-1.2) X10*3/uL Eos # (Auto) (0.0-0.4) X10*3/uL Baso # (Auto) (0.0-0.2) X10*3/uL Abs Immat Gran (auto) (0.00-0.03) X10*3/uL Absolute Neuts (auto) (2.0-8.3) x10*3/uL Absolute Nucleated RBC (0.0-0.012) X10*3/uL Nucleated RBC % (auto) (0.0-0.2) /100WBC Sodium 139 (135-145) mmol/L Potassium 4.0 (3.3-5.1) mmol/L Chloride 109 H (96-108) mmol/L Carbon Dioxide 25 (22-29) mmol/L Anion Gap 9 L (12-20) BUN 15 (9-16) mg/dL Creatinine 0.88 (0.5-1.4) mg/dL Estim Creat Clear Calc 101.7 Estimated GFR > 60 Random Glucose 100 (60-115) mg/dL Calcium 8.7 D (8.4-10.2) mg/dL Magnesium 2.0 (1.6-2.6) mg/dL Total Bilirubin 0.5 (0.0-1.0) mg/dL Direct Bilirubin 0.2 (0.0-0.5) mg/dL AST 12 (5-31) U/L ALT 22 (0-31) U/L Alkaline Phosphatase 85 (39-117) U/L Total Creatine Kinase 33 (26-140) U/L B-Natriuretic Peptide < 10 (<100) pg/mL Total Protein 6.5 (6.5-8.0) g/dL Albumin 3.8 (3.5-5.0) g/dL Lipase 39 (8-78) U/L Influenza Type A (PCR) (Negative) Influenza Type B (PCR) (Negative) RSV RNA Qual (PCR) (Negative) SARS-CoV-2 RNA (RT-PCR) (Negative) S. pyogenes GrpA AMOR (Negative) Radiology Impression Discussion of test interpretation with radiology: I have reviewed the radiologist's reading. Independent Historian Clinical information obtained from an independent historian. History obtained from or confirmed by: Spouse External Record Review External record reviewed: Outpatient record and Prior outpatient labs Discharge Plan Discharge Clinical Impression: Abdominal pain, Nausea & vomiting, Diarrhea Patient Disposition: Still a Patient Prescriptions: No Action cefdinir 300 mg capsule 300 mg PO BID Qty: 14 0RF phenazopyridine [Pyridium] 200 mg tablet 200 mg PO TID PRN (Reason: pain) Qty: 6 0RF tramadol 50 mg tablet 50 - 100 mg PO Q6H PRN (Reason: pain) Qty: 20 0RF ondansetron 4 mg tablet,disintegrating 4 mg PO Q6H PRN (Reason: nausea and vomiting) Qty: 10 0RF cyclobenzaprine 10 mg tablet 10 mg PO TID PRN (Reason: pain) Qty: 14 0RF Referrals: [facility] [Provider Group] Physician,Unknown J [Primary Care Provider] -
[2022-04-01 23:09] LABS: Influenza A PCR NEGATIVE (Negative); Influenza B PCR NEGATIVE (Negative); Resp Syncy Virus RNA Qual PCR NEGATIVE (Negative); SARS COV2 PCR INHOUSE NEGATIVE (Negative)
[2022-04-01] MEDS: 0.9 % Sodium Chloride 1,000 ML 999 ML IV (23:15)
[2022-04-01] MEDS: Famotidine/PF 20 MG/2 ML VIAL IVPUSH (23:15)
[2022-04-01] MEDS: ondansetron HCL 4 MG/2 ML VIAL IVPUSH (23:16)
[2022-04-01 23:30] LABS: B Type Natriuretic Peptide < 10 pg/mL (<100)
[2022-04-01 23:34] LABS: Alanine Aminotransferase 22 U/L (0-31); Albumin Level 3.8 g/dL (3.5-5.0); Alkaline Phosphatase 85 U/L (39-117); Anion Gap 9 (12-20); Aspartate Amino Transferase 12 U/L (5-31); Bilirubin Direct 0.2 mg/dL (0.0-0.5); Bilirubin Total 0.5 mg/dL (0.0-1.0); Blood Urea Nitrogen 15 mg/dL (9-16); Calcium 8.7 mg/dL (8.4-10.2); Carbon Dioxide 25 mmol/L (22-29); Chloride 109 mmol/L (96-108); Creatinine Clr Calc Pharmacy 101.7; Estimated Glomerular Filt Rate > 60; Glucose Random 100 mg/dL (60-115); Lipase 39 U/L (8-78); Sodium 139 mmol/L (135-145); Total Protein 6.5 g/dL (6.5-8.0)
[2022-04-02] MEDS: Morphine Sulfate 2 MG/ML CARTRIDGE IVPUSH (00:15)
[2022-04-02 01:02] VITALS: BP 137/83; PULSE 95; RESP 14; TEMP 37.1; O2SAT 97
[2022-04-02 01:41] LABS: HCG Quantitative < 2 mIU/mL
[2022-04-02 02:08] LABS: Lactic Acid 1.1 mmol/L (0.5-2.0)
[2022-04-02 02:17] LABS: Appearance Urine Clear; Color Urine Yellow; Glucose Urine UA Negative (Negative); Leukocyte Esterase Urine Negative (Negative); Nitrite Urine Negative (Negative); PH 5.5 (5.0-9.0); Urine Blood Negative (Negative); Urine Ketones Negative (Negative); Urine Protein Negative (Neg-Trace)
[2022-04-02] MEDS: cefTRIAXone sodium 1 GM in 0.9 % Sodium Chloride 50 ML IV (02:32)
[2022-04-02] MEDS: iohexoL 350 MG/ML 100 ML INFUS..BTL 85 ML IV (02:32)
[2022-04-02] MEDS: LORazepam 2 MG/ML VIAL 1 MG IVPUSH (03:37)
[2022-04-02] MEDS: Lidocaine HCl Viscous 2 % 15 ML SOLUTION MUCOUS MEM (03:38)
[2022-04-02] MEDS: Dicyclomine HCl 10 MG CAPSULE 20 MG PO (03:38)
== END 2022-04-02 05:28 | disposition home or self-care (01) ==
PROVIDERS: Physician Assistant; Emergency Provider Internal Medicine
DX: R10.9 Unspecified abdominal pain (principal); R11.2 Nausea with vomiting, unspecified; R19.7 Diarrhea, unspecified; R00.0 Tachycardia, unspecified; D72.829 Elevated white blood cell count, unspecified; Z20.822 Contact with and (suspected) exposure to COVID-19; Z20.828 Contact with and (suspected) exposure to other viral communicable diseases; J45.909 Unspecified asthma, uncomplicated; Z79.899 Other long term (current) drug therapy
CPT/HCPCS: 0241U; 36415; 74177; 80053; 81003; 82248; 82550; 83605; 83690; 83735; 83880; 84702; 85025; 87040; 87651; 96361; 96365; 96375; 99284; J0696; J2060; J2270; J2405; Q9967

== ENCOUNTER 2022-08-13 11:22 | Emergency (ER) | payer OTHER, SELFPAY ==
--- NOTE | ~2022-08-13 | CT_ITS ---
EXAMINATION: CT ABDOMEN AND PELVIS WITHOUT CONTRAST CLINICAL INFORMATION: Left flank pain with UTI COMPARISON: 04/02/2022 TECHNIQUE: Multidetector volumetric imaging was performed from the superior aspect of the liver through the pubic symphysis. Sagittal and coronal reformatted images were obtained on the technologist's workstation. This CT examination was performed using dose optimization techniques as appropriate, variously including the following: *Automated exposure control *Adjustment of mA and/or kV according to patient size (this includes techniques or standardized protocols for targeted exams where dose is matched to indication/reason for exam; i.e. extremities or head) *Use of iterative reconstruction technique DLP: 1107 mGy-cm FINDINGS: LUNG BASES: Mild reticular density at the right base anterior may be a small area of reticular nodular infiltrate LIVER, GALLBLADDER, AND BILIARY TREE: The liver is normal in size, shape, and attenuation. No focal hepatic lesion or biliary ductal dilatation is present. Status post cholecystectomy PANCREAS: Unremarkable. SPLEEN: Unremarkable. ADRENAL GLANDS: Unremarkable. KIDNEYS AND URETERS: The kidneys are normal in size, shape, and attenuation. No hydronephrosis, hydroureter, or calculi seen. No perinephric stranding. BLADDER: Unremarkable. GASTROINTESTINAL TRACT: The small and large bowel are unremarkable. The appendix is unremarkable. ABDOMINAL WALL: No significant hernia is appreciated. LYMPH NODES: Some shotty nodes here. No bulky adenopathy VASCULAR: Unremarkable. PELVIC VISCERA: Probable ovarian or paraovarian cyst high in the left adnexa measures 3.5 x 3.1 cm OSSEOUS STRUCTURES: Once again sclerotic change in the region of the SI joints may indicate sacroiliitis. There is no ankylosis or acute bony erosion. CT/CT abdomen pelvis wo IV con IMPRESSION: There is no evidence of renal or ureteral stone or obstruction. The bowel pattern is nonobstructing. No free fluid. Note is made of a 3.5 x 3.1 cm ovarian or periovarian cyst high in the left adnexa Fleischner guidelines were followed.
--- NOTE | ~2022-08-13 | XR_ITS ---
EXAMINATION: XR CHEST CLINICAL INFORMATION: History of aspiration COMPARISON: Chest x-ray on 05/07/2018 TECHNIQUE: Frontal view of the chest was obtained. FINDINGS: No significant abnormality is noted involving the heart, lungs, mediastinum, bony thorax or soft tissues. XR/XR chest 1V IMPRESSION: Unremarkable examination.
--- NOTE | 2022-08-13 12:10 | ED.GENADULT ---
HPI - General Adult General Chief complaint: Nausea/Vomiting/Diarrhea Stated complaint: vomiting Time Seen by Provider: 08/13/22 16:21 Source: patient Mode of arrival: ambulatory Limitations: no limitations History of Present Illness HPI narrative: Patient having nausea vomiting and diarrhea for last 3 days vomiting more than 15 times diarrhea 5-10 times with diffuse abdominal cramps complaining of body aches no fever no chills no urine symptoms patient just had a miscarriage no vaginal bleeding at this time patient is status post cholecystectomy Related Data Previous Rx's Medication Instructions Recorded cefdinir 300 mg capsule 300 mg PO BID #14 caps 09/22/20 ondansetron 4 mg disintegrating 4 mg PO Q6H PRN nausea and 09/22/20 tablet vomiting #10 tabs phenazopyridine 200 mg tablet 200 mg PO TID PRN pain 6 doses #6 09/22/20 (Pyridium) tabs tramadol 50 mg tablet 50 - 100 mg PO Q6H PRN pain #20 09/22/20 tabs cyclobenzaprine 10 mg tablet 10 mg PO TID PRN pain #14 tabs 04/02/21 cefuroxime axetil 250 mg tablet 250 mg PO BID 7 days #14 tabs 08/13/22 ondansetron 4 mg disintegrating 4 mg PO Q6-8H PRN nausea and 08/13/22 tablet vomiting #10 tabs tramadol 50 mg tablet 50 mg PO Q6H PRN pain #20 tabs 08/13/22 Allergies Allergy/AdvReac Type Severity Reaction Status Date / Time ibuprofen [From Motrin] Allergy Unknown SWELLING, Verified 04/02/21 03:03 hives, itching latex [Latex] Allergy Unknown RASH Verified 04/02/21 03:03 walnut Allergy Unknown HIVES Verified 04/02/21 03:03 bee pollen [bee stings] Allergy Anaphylaxis Verified 04/02/21 03:03 Latex Allergy Unknown rash Uncoded 04/02/21 03:03 latex Allergy Unknown Rash Uncoded 04/02/21 03:03 oxycodone Allergy Unknown hives Uncoded 04/02/21 03:03 peanuts/nuts Allergy Unknown Swelling Uncoded 04/02/21 03:03 Review of Systems Review of Systems: Yes all other systems are reviewed and are negative PMFSH Past Medical History Medical History Asthma Social History Social History Alcohol intake: current Alcohol intake frequency: holidays/special occasions only Smoked in Last 30 Days: Yes Use of substances other than those prescribed or required for medical reasons: No Advance Directives: No Advance Directives Information Provided: No Physical Exam ED Vital Signs: Vital Signs - 24 hr 08/13/22 12:11 08/13/22 16:18 08/13/22 17:46 Temperature 97.2 F 98.3 F Pulse Rate 103 H 92 Respiratory Rate 18 18 18 Blood Pressure 191/106 H 184/101 H Pulse Oximetry 98 100 Oxygen Delivery Method Room Air Room Air 08/13/22 18:51 Temperature 99.9 F Pulse Rate 90 Respiratory Rate 16 Blood Pressure 151/95 H Pulse Oximetry 100 Oxygen Delivery Method Room Air BMI result Body Mass Index 55.7 Appearance: Alert. Oriented X3. No acute distress. Eyes: PERRLA, No Nystagmus ENT: Pharynx normal. Oral Mucosa dry Neck: Normal inspection. Neck supple. CVS: Normal heart rate and rhythm. Pulses normal. Respiratory: No respiratory distress. Equal air entry bilateral, no wheezing/rales/rhonchi Abdomen: Soft diffuse tenderness no rebound tenderness or guarding Bowel sounds are present, no mass palpable, no CVA tenderness Skin: Skin warm and dry. Normal skin color. Normal skin turgor. Extremities: No lower extremity edema. No calf tenderness Neuro: Oriented X 3. No motor deficit. Course Course Course Narrative: This is an RME: Additional HPI, ROS, PE not included below will be deferred to primary provider. This is a [id number]-female, with a history of ovarian cysts with cyst removal and cholescystectomy, who presents to the emergency department with complaints of nausea, vomiting, and upper abdominal pain x 3 days. Reports last week she had a miscarriage, was very early in the only about 1 week , has followed up with OBGYN at [facility] who informed her beta HCG decreased. Reports chills, no fevers. Unable to tolerate PO today. hx of ovarian cysts with cyst removed, gall bladder removal. BP 190/106, all other vital signs WNL. Plan: Labs ordered. Reevaluation(s) Reevaluation #1: Patient does have history of kidney stone complaining of flank pain and upper abdominal pain even after receiving IV morphine IV fluid Zofran feel nauseated workup showed UTI will get CT scan abdomen to rule out pyelonephritis/obstructive kidney stone IV Rocephin was given patient choked on the food last week and has some cough will get a x-ray to rule out aspiration Time: 19:53 Medications Administered Discontinued Medications Generic Name Dose Route Start Last Admin Trade Name Freq PRN Reason Stop Dose Admin Hydromorphone HCl 1 mg 08/13/22 19:51 08/13/22 20:14 Hydromorphone Hcl 1 Mg/Ml Syringe IVPUSH 08/13/22 19:52 1 mg ONCE ONE Administration Protocol Sodium Chloride 1,000 mls @ 999 mls/hr 08/13/22 16:28 08/13/22 20:00 Ns IV 08/13/22 17:28 Infused .Q1H1M ONE Infusion Sodium Chloride 1,000 mls @ 999 mls/hr 08/13/22 16:48 08/13/22 21:20 Ns IV 08/13/22 17:48 Infused .Q1H1M ONE Infusion Ceftriaxone Sodium 1 gm/ 50 mls @ 100 mls/hr 08/13/22 18:45 08/13/22 20:47 Sodium Chloride IV 08/13/22 19:14 Infused ONCE ONE Infusion Morphine Sulfate 4 mg 08/13/22 17:25 08/13/22 17:46 Morphine Sulfate 4 Mg/Ml Cartridge IVPUSH 08/13/22 17:26 4 mg ONCE ONE Administration Protocol Ondansetron HCl 4 mg 08/13/22 12:37 08/13/22 12:39 Ondansetron Hcl 4 Mg/2 Ml Vial IM 08/13/22 12:38 4 mg ONCE ONE Administration Ondansetron HCl 4 mg 08/13/22 16:47 08/13/22 17:40 Ondansetron Hcl 4 Mg/2 Ml Vial IVPUSH 08/13/22 16:48 4 mg ONCE ONE Administration Prochlorperazine Edisylate 10 mg 08/13/22 19:50 08/13/22 20:13 Prochlorperazine Edisylate 10 Mg/2 Ml Vial IVPUSH 08/13/22 19:51 10 mg ONCE ONE Administration Medical Decision Making Medical Decision Making MDM Narrative: Pre acute gastroenteritis with UTI CT scan was done which negative for kidney stone as patient had his kidney stone before. No perinephric changes. Showed a ovarian cyst which she had before. Patient responded to IV fluids and nausea medication able take p.o. fluids discharge patient home patient was given IV dose of antibiotic in the ER Lab Data [facility] Lab Attestation statement: I reviewed the patient's lab results. 08/13/22 12:27 08/13/22 12:27 Labs: Lab Results 08/13/22 08/13/22 08/13/22 Range/Units 12:27 12:27 17:24 WBC 19.8 H (4.8-10.8) X10*3/uL RBC 5.44 (4.20-5.50) X10*6/uL Hgb 16.2 H (12.0-16.0) g/dl Hct 47.8 H (37.0-47.0) % MCV 87.9 (80.0-98.0) fL MCH 29.8 (27.0-33.0) pg MCHC 33.9 (31.0-35.0) g/dl RDW 13.2 (11.0-16.0) % Plt Count 393 (160-400) X10*3/uL MPV 9.0 L (9.4-12.3) fL Immature Gran % (Auto) 0.6 H (0.0-0.4) % Neut % (Auto) 78.2 H (45-73) % Lymph % (Auto) 15.3 L (20-40) % [place] % (Auto) 4.4 (2-11) % Eos % (Auto) 1.1 (0-4) % Baso % (Auto) 0.4 (0-2) % Lymph # (Auto) 3.0 (1.2-4.9) X10*3/uL [place] # (Auto) 0.9 (0.1-1.2) X10*3/uL Eos # (Auto) 0.2 (0.0-0.4) X10*3/uL Baso # (Auto) 0.1 (0.0-0.2) X10*3/uL Abs Immat Gran (auto) 0.11 H (0.00-0.03) X10*3/uL Absolute Neuts (auto) 15.5 H (2.0-8.3) x10*3/uL Absolute Nucleated RBC 0.000 (0.0-0.012) X10*3/uL Nucleated RBC % (auto) 0.0 (0.0-0.2) /100WBC Sodium 138 (135-145) mmol/L Potassium 4.0 (3.3-5.1) mmol/L Chloride 101 (96-108) mmol/L Carbon Dioxide 26 (22-29) mmol/L Anion Gap 15 (12-20) BUN 9 (9-16) mg/dL Creatinine 1.09 (0.5-1.4) mg/dL Estim Creat Clear Calc 89.0 Estimated GFR 57 Random Glucose 109 (60-115) mg/dL Calcium 10.0 D (8.4-10.2) mg/dL Magnesium 1.9 (1.6-2.6) mg/dL Total Bilirubin 1.2 H (0.0-1.0) mg/dL Direct Bilirubin 0.3 (0.0-0.5) mg/dL AST 14 (5-31) U/L ALT 20 (0-31) U/L Alkaline Phosphatase 91 (39-117) U/L Total Protein 8.1 H (6.5-8.0) g/dL Albumin 4.7 (3.5-5.0) g/dL Lipase 14 (8-78) U/L Urine Color Dark Yellow Urine Appearance Cloudy Urine pH 6.0 (5.0-9.0) Ur Specific [place] >= 1.030 H (1.005-1.025) Urine Protein 30 (1+) H (Neg-Trace) mg/dL Urine Glucose (UA) Negative (Negative) mg/dL Urine Ketones 40 (Negative) mg/dL Urine Blood Large (3+) H (Negative) Urine Nitrite Negative (Negative) Ur Leukocyte Esterase Moderate (2+) H (Negative) Urine RBC 11-20 H (0-2) /HPF Urine WBC 11-20 H (0-5) /HPF Ur Squamous Epith Cells >20 (0-2) /HPF Urine Bacteria 4+ (None Seen) Hyaline Casts 0-2 (0-2) /LPF Discharge Plan Discharge Clinical Impression: Gastroenteritis, UTI (urinary tract infection) Patient Disposition: Home, Self-Care Instructions: Urinary Tract Infection in Women (ED), Gastroenteritis (ED) Additional Instructions: Drink plenty of fluid Medicine for nausea as prescribed Antibiotic as prescribed for UTI Report to ER if high fever/worsening of symptoms/vomiting Prescriptions: New cefuroxime axetil 250 mg tablet 250 mg PO BID 7 Days Qty: 14 0RF ondansetron 4 mg tablet,disintegrating 4 mg PO Q6-8H PRN (Reason: nausea and vomiting) Qty: 10 0RF tramadol 50 mg tablet 50 mg PO Q6H PRN (Reason: pain) Qty: 20 0RF No Action cefdinir 300 mg capsule 300 mg PO BID Qty: 14 0RF phenazopyridine [Pyridium] 200 mg tablet 200 mg PO TID PRN (Reason: pain) Qty: 6 0RF tramadol 50 mg tablet 50 - 100 mg PO Q6H PRN (Reason: pain) Qty: 20 0RF ondansetron 4 mg tablet,disintegrating 4 mg PO Q6H PRN (Reason: nausea and vomiting) Qty: 10 0RF cyclobenzaprine 10 mg tablet 10 mg PO TID PRN (Reason: pain) Qty: 14 0RF Interventions: ED Discharge Assessment Last Done: 08/13/22 22:51 Discharge Date/Time: 08/13/22 22:51
[2022-08-13 12:11] VITALS: BP 191/106; PULSE 103; RESP 18; TEMP 36.2; O2SAT 98; BMI 55.7
[2022-08-13 12:31] LABS: MANUAL DIFF FLAG NO
[2022-08-13 12:35] LABS: Basophils Absolute Auto 0.1 X10*3/uL (0.0-0.2); Basophils Percent Auto 0.4 % (0-2); Eosinophils Absolute Auto 0.2 X10*3/uL (0.0-0.4); Eosinophils Percent Auto 1.1 % (0-4); Hematocrit 47.8 % (37.0-47.0); Hemoglobin 16.2 g/dl (12.0-16.0); Imm Gran Abs Auto 0.11 X10*3/uL (0.00-0.03); Imm Gran Pct Auto 0.6 % (0.0-0.4); Lymphocytes Percent Auto 15.3 % (20-40); Mean Corpuscular HGB Conc 33.9 g/dl (31.0-35.0); Mean Corpuscular Hemoglobin 29.8 pg (27.0-33.0); Mean Corpuscular Volume 87.9 fL (80.0-98.0); Monocytes Absolute Auto 0.9 X10*3/uL (0.1-1.2); Monocytes Percent Auto 4.4 % (2-11); Neutrophils Absolute Auto 15.5 x10*3/uL (2.0-8.3); Neutrophils Percent Auto 78.2 % (45-73); Platelet Count 393 X10*3/uL (160-400); Red Blood Count 5.44 X10*6/uL (4.20-5.50); Red Cell Distribution Width 13.2 % (11.0-16.0); White Blood Count 19.8 X10*3/uL (4.8-10.8)
[2022-08-13] MEDS: ondansetron HCL 4 MG/2 ML VIAL IM (12:39)
[2022-08-13 12:51] LABS: Alanine Aminotransferase 20 U/L (0-31); Albumin Level 4.7 g/dL (3.5-5.0); Alkaline Phosphatase 91 U/L (39-117); Anion Gap 15 (12-20); Aspartate Amino Transferase 14 U/L (5-31); Bilirubin Direct 0.3 mg/dL (0.0-0.5); Bilirubin Total 1.2 mg/dL (0.0-1.0); Blood Urea Nitrogen 9 mg/dL (9-16); Carbon Dioxide 26 mmol/L (22-29); Chloride 101 mmol/L (96-108); Estimated Glomerular Filt Rate 57; Glucose Random 109 mg/dL (60-115); Lipase 14 U/L (8-78); Magnesium 1.9 mg/dL (1.6-2.6); Sodium 138 mmol/L (135-145); Total Protein 8.1 g/dL (6.5-8.0)
[2022-08-13 16:18] VITALS: BP 184/101; PULSE 92; RESP 18; TEMP 36.8; O2SAT 100
[2022-08-13 17:37] LABS: Appearance Urine Cloudy; Color Urine Dark Yellow; Glucose Urine UA Negative (Negative); Leukocyte Esterase Urine Moderate (2+) (Negative); Nitrite Urine Negative (Negative); Specific Gravity - Urine >= 1.030 (1.005-1.025); UMIC TRIGGER UACC YES; Urine Blood Large (3+) (Negative); Urine Ketones 40 mg/dL (Negative); Urine Protein 30 (1+) mg/dL (Neg-Trace)
[2022-08-13 17:39] LABS: Bacteria Urine 4+ (None Seen); Hyaline Casts Urine 0-2 /LPF (0-2); Squamous Epithelial Cell Urine >20 /HPF (0-2); UACC Culture Trigger YES
[2022-08-13] MEDS: ondansetron HCL 4 MG/2 ML VIAL IVPUSH (17:40)
[2022-08-13] MEDS: 0.9 % Sodium Chloride 1,000 ML 999 ML IV ×2 (17:40→20:13)
[2022-08-13 17:46] VITALS: RESP 18
[2022-08-13] MEDS: Morphine Sulfate 4 MG/ML CARTRIDGE IVPUSH (17:46)
[2022-08-13 18:51] VITALS: BP 151/95; PULSE 90; RESP 16; TEMP 37.7; O2SAT 100
--- NOTE | 2022-08-13 19:46 | PC.NURSE ---
assumed care of pt pt sleeping, no apparent distress respirations even and unlabored will CTM
[2022-08-13] MEDS: cefTRIAXone sodium 1 GM in 0.9 % Sodium Chloride 50 ML IV (20:13)
[2022-08-13] MEDS: Prochlorperazine Edisylate 10 MG/2 ML VIAL IVPUSH (20:13)
[2022-08-13] MEDS: HYDROmorphone HCl 1 MG/ML SYRINGE IVPUSH (20:14)
--- NOTE | 2022-08-13 21:58 | PC.NURSE ---
pt requested suzi antonieta; given
--- NOTE | 2022-08-13 22:57 | PC.NURSE ---
Discharge instructions given and explained to patient No apparent distress denies pain aox4 Ambulates safely and independently IV cath tip intact upon removal
== END 2022-08-13 22:51 | disposition home or self-care (01) ==
PROVIDERS: Physician Assistant Medical; Emergency Provider Internal Medicine
DX: K52.9 Noninfective gastroenteritis and colitis, unspecified (principal); N39.0 Urinary tract infection, site not specified; R07.89 Other chest pain; R10.9 Unspecified abdominal pain; Z79.899 Other long term (current) drug therapy
CPT/HCPCS: 36415; 71045; 74176; 80048; 80076; 81001; 83690; 83735; 85025; 87086; 96361; 96372; 96374; 96375; 99284; J0696; J1170; J2270; J2405

== ENCOUNTER → 2024-09-06 22:21 | Outpatient (BNV) | payer MEDICAID, SELFPAY | PROVIDERS: PCP Dentist General Practice; Visit Provider Radiology Diagnostic Radiology | DX: M54.50 Low back pain, unspecified (principal) | CPT/HCPCS: 72100 ==

== ENCOUNTER 2024-09-06 23:01 | Emergency (ER) | payer OTHER, MEDICAID, SELFPAY ==
--- NOTE | ~2024-09-06 | XR_ITS ---
CLINICAL HISTORY: severe back pain 3 views lumbar spine Comparison: None provided Findings: Exaggeration of the lumbar lordosis. Trace retrolisthesis at L5-S1. No acute fracture. Mild multilevel facet arthropathy. Question pars defects at L5. Right upper quadrant clips. IMPRESSION: Chronic changes without acute findings. This document has been electronically signed by: Saul Richards MD on 09/06/2024 23:40:00
[2024-09-06 23:06] VITALS: BP 165/112; PULSE 87; RESP 18; TEMP 36.9; O2SAT 98; BMI 44.9
[2024-09-07 00:01] VITALS: BP 156/93; PULSE 87; RESP 16; TEMP 36.9; O2SAT 98
--- NOTE | 2024-09-07 01:52 | ED_ITS ---
HPI - Back Pain/Injury General Chief Complaint: Back Pain/Injury Stated Complaint: Back Pain Time Seen by Provider: 09/07/24 01:24 Source: patient Mode of arrival: ambulatory Limitations: no limitations History of Present Illness ED Provider: Dr. Guadalupe Frost HPI Narrative: Patient comes to the emergency room complaining of chronic sciatica pain. Patient states that she recently moved from [place]. Patient was undergoing physical therapy and states that she has surgery planned. However, she needed to move to [place]. Patient states that she drove from [place] and on the way here, she stopped in [place] in a hotel, and forgot 2 weeks worth of 10 mg of oxycodone and Flexeril. Patient denies any urinary/fecal incontinence/retention. Denies any recent injuries. Patient states the pain was exacerbated from the right up here to [place]. Related Data Previous Rx's ?Medication ?Instructions ?Recorded cefdinir 300 mg capsule 300 mg PO BID #14 caps 09/22 ondansetron 4 mg disintegrating 4 mg PO Q6H PRN nausea and 09/22/20 tablet vomiting #10 tabs phenazopyridine 200 mg tablet 200 mg PO TID PRN pain 6 doses #6 09/22/20 (Pyridium) tabs tramadol 50 mg tablet 50 - 100 mg (1 - 2 x 50 mg) PO Q6H 09/22/20 PRN pain #20 tabs cyclobenzaprine 10 mg tablet 10 mg PO TID PRN pain #14 tabs 04/02/21 cefuroxime axetil 250 mg tablet 250 mg PO BID 7 days # 14 tabs 08/13/22 ondansetron 4 mg disintegrating 4 mg PO Q6-8H PRN naus ea and 08/13/22 tablet vomiting #10 tabs tramadol 50 mg tablet 50 mg PO Q6H PRN pain #20 ta bs 08/13/22 cyclobenzaprine 10 mg tablet 10 mg PO TID PRN muscle s pasm #20 09/07/24 tabs oxycodone 5 mg tablet 5 mg PO BID PRN pain #8 tabs 09/07/24 Allergies Allergy/AdvReac Type Severity Reaction Status Date / Time ibuprofen (From Motrin) Allergy Unknown SWELLING, Verified 09/06/24 23:08 hives, itching latex (Latex) Allergy Unknown RASH Verified 09/06/24 23:08 walnut Allergy Unknown HIVES Verified 09/06/24 23:08 bee pollen (bee stings) Allergy Anaphylaxis Verified 09/06/24 23:08 Latex Allergy Unknown rash Uncoded 09/06/24 23:08 latex Allergy Unknown Rash Uncoded 09/06/24 23:08 oxycodone Allergy Unknown hives Uncoded 09/06/24 23:08 peanuts/nuts Allergy Unknown Swelling Uncoded 09/06/24 23:08 Review of Systems Review of Systems: Constitutional : No Weight loss, No Fever, No Chills, No Night Sweats, No Fatigue, No Malaise ENT/Mouth : No Hearing loss, No Ear Pain, No Nasal Congestion, No Sinus Pain, No Hoarseness, No sore throat, No Rhinorrhea, No Swallowing Difficulty Eyes: No Eye Pain, No Swelling, No Redness, No Foreign Body, No Discharge, No Vision Changes Cardiovascular : No Chest Pain, No SOB, No Dyspnea on Exertion, No Orthopnea, No Edema, No Palpitations Respiratory : No Cough, No Sputum, No Wheezing, No Smoke Exposure, No Dyspnea Gastrointestinal : No Nausea, No Vomiting, No Diarrhea, No Constipation, No abdominal Pain, No Hematochezia, No Melena Genitourinary : no irregular bleeding, No Dysuria, No Urinary Frequency, No Hematuria, No Urinary Incontinence, No Urgency, No Flank Pain, No Urinary Flow Changes, No Hesitancy Musculoskeletal : Complaining of chronic back pain, No joint pain, No Myalgias, No Joint Swelling Skin : No Skin Lesions, No rash Neuro : No Weakness, No Numbness, No Paresthesias, No Loss of Consciousness, No Dizziness, No Headache Psych : No Anxiety/Panic, No Depression, No SI/HI/AH/VH, No Social Issues, Heme/Lymph: No Bruising, No Bleeding,No Lymphadenopathy Endocrine : No Polyuria, No Polydipsia, No Temperature Intolerance [facility] Past Medical History Medical History (Updated 09/07/24 @ 01:57 by Guadalupe Frost MD) Sciatica Asthma Social History Social History Alcohol intake: current Alcohol intake frequency: holidays/special occasions only Advance Directives: No Advance Directives Information Provided: Yes Physical Exam Vital Signs: Vital Signs: Last Vital Signs Temp 98.4 F 09/07/24 00:01 Pulse 87 09/07/24 00:01 Resp 16 09/07/24 00:01 BP 156/93 H 09/07/24 00:01 Pulse Ox 98 09/07/24 00:01 O2 Del Method Room Air 09/07/24 00:01 BMI result Body Mass Index 44.9 Const: Other: Appearance: Alert. Oriented X3. No acute distress. Eyes: Pupils equal, round and reactive to light. ENT: Pharynx normal. Neck: Normal inspection. Neck supple. No lymph nodes noted. No crepitus CVS: Normal heart rate and rhythm. Pulses normal. Normal S1 and S2 Respiratory: No respiratory distress. Breath sounds normal. No Wheezing. No rales Abdomen: Soft and nontender. No rigidity. No distention. Back: Bilateral pain with elevation with right and left leg raise Skin: Skin warm and dry. Normal skin color. Normal skin turgor. Extremities: No lower extremity edema. No Lacerations. No Rash Neuro: Oriented X 3. No motor deficit. No sensory deficit. Moving all extremities. No slurred speech. CN 2 through 12 grossly intact Psych: calm, cooperative, normal affect Course Course Course Narrative: Patient complaining of chronic sciatica pain with radiation to both legs, no acute symptoms. Patient states that in [place] where she used to live, she had finished physical therapy and was scheduled for surgery but then she needed to move back to [place]. Patient forgot her oxycodone tablets in a hotel in [place]. Medical Decision Making Medical Decision Making [facility] Narrative: It does seem uncomfortable, she was given IM dexamethasone and morphine 4 mg. I discussed with the patient that we can refill her cyclobenzaprine, but I can not give her 2 weeks' worth of 10 mg of oxycodone. I discussed with the patient that I will give her the phone number for the pain clinic. Patient does not have a PCP yet. Patient states that she will try to give him a call and see if they can help her out with a referral and cortisone shots in her back. Patient does not have any symptoms concerning for cauda equina. Critical Care Time Critical Care Time Critical Care Time: Yes Total Critical Care Time: 35 Attestation: I have personally provided critical care time. Time includes review of lab data, radiology results, discussion with consultants, and monitoring for potential decompensation. Intervention performed as documented. Discharge Plan Discharge Clinical Impression: Lumbar radiculopathy, Sciatica Patient Disposition: Home, Self-Care Instructions: Back Pain (ED) Additional Instructions: Please follow-up with your primary care physician tomorrow. If you have any wo rsening or new symptoms, please return to the emergency room or call 911 Prescriptions: New cyclobenzaprine 10 mg tablet 10 mg PO TID PRN (Reason: muscle spasm) Qty: 20 0RF Rx Instructions: Do not drive or work after taking this medication, it may make you feel drowsy oxycodone 5 mg tablet 5 mg PO BID PRN (Reason: pain) Qty: 8 0RF Rx Instructions: Partial Fill upon patient request. No Action cefdinir 300 mg capsule 300 mg PO BID Qty: 14 0RF phenazopyridine [Pyridium] 200 mg tablet 200 mg PO TID PRN (Reason: pain) Qty: 6 0RF tramadol 50 mg tablet 50 - 100 mg PO Q6H PRN (Reason: pain) Qty: 20 0RF ondansetron 4 mg tablet,disintegrating 4 mg PO Q6H PRN (Reason: nausea and vomiting) Qty: 10 0RF cyclobenzaprine 10 mg tablet 10 mg PO TID PRN (Reason: pain) Qty: 14 0RF cefuroxime axetil 250 mg tablet 250 mg PO BID 7 Days Qty: 14 0RF ondansetron 4 mg tablet,disintegrating 4 mg PO Q6-8H PRN (Reason: nausea and vomiting) Qty: 10 0RF tramadol 50 mg tablet 50 mg PO Q6H PRN (Reason: pain) Qty: 20 0RF Referrals: Sharonda Wills FNP [Nurse Practitioner, Pain Management] Print Language: Qatari
[2024-09-07] MEDS: Morphine Sulfate 4 MG/ML CARTRIDGE IM (02:19)
[2024-09-07] MEDS: dexAMETHasone sod phosphate 4 MG/ML VIAL IM (02:19)
[2024-09-07 02:52] VITALS: BP 167/111; PULSE 87; RESP 16; TEMP 36.2; O2SAT 100
== END 2024-09-07 02:53 | disposition home or self-care (01) ==
PROVIDERS: Emergency Provider Emergency Medicine; PCP Dentist General Practice
DX: M54.16 Radiculopathy, lumbar region (principal); M54.41 Lumbago with sciatica, right side
CPT/HCPCS: 72100; 96372; 99282; 99284; J1100; J2270

== ENCOUNTER 2024-09-16 20:15 | Emergency (ER) | payer MEDICAID, SELFPAY ==
--- NOTE | ~2024-09-16 | XR_ITS ---
CLINICAL HISTORY: chest pain Chest Radiographs Comparison: 08/13/22 Findings: No cardiomegaly. Normal mediastinal contours. No pneumothorax. No opacity. No pleural effusion. Normal upper abdomen. No acute fracture. Impression: No acute findings. This document has been electronically signed by: Caty Church MD on 09/16/2024 21:15:15
--- NOTE | 2024-09-16 20:24 | ED.GENADULT ---
HPI - General Adult General Chief complaint: Upper Respiratory Symptoms Stated complaint: sore throat, ear pain Time Seen by Provider: 09/16/24 21:57 History of Present Illness ED Provider: Golden HDEZ narrative: The patient is a 39-year-old female who says that she has felt unwell for about 5 or 6 days. She says her symptoms began with a runny nose and she thought she simply had a cold. However she has progressed to have significant coughing. Also sore throat. Also left ear pain. Last night she had a temperature of 103.2 degrees. She came to the emergency room today for evaluation of the symptoms. Related Data Previous Rx's ?Medication ?Instructions ?Recorded cefdinir 300 mg capsule 300 mg PO BID #14 caps 09/22/20 ondansetron 4 mg disintegrating 4 mg PO Q6H PRN nausea and 09/22/20 tablet vomiting #10 tabs phenazopyridine 200 mg tablet 200 mg PO TID PRN pain 6 doses #6 09/22/20 (Pyridium) tabs tramadol 50 mg tablet 50 - 100 mg (1 - 2 x 50 mg) PO Q6H 09/22/20 PRN pain #20 tabs cyclobenzaprine 10 mg tablet 10 mg PO TID PRN pain #14 tabs 04/02/21 cefuroxime axetil 250 mg tablet 250 mg PO BID 7 days #14 tabs 08/13/22 ondansetron 4 mg disintegrating 4 mg PO Q6-8H PRN nausea and 08/13/22 tablet vomiting #10 tabs tramadol 50 mg tablet 50 mg PO Q6H PRN pain #20 tabs 08/13/22 cyclobenzaprine 10 mg tablet 10 mg PO TID PRN muscle spasm #20 09/07/24 tabs oxycodone 5 mg tablet 5 mg PO BID PRN pain #8 tabs 09/07/24 doxycycline monohydrate 100 mg 100 mg PO BID 8 days #16 caps 09/16/24 capsule Allergies Allergy/AdvReac Type Severity Reaction Status Date / Time ibuprofen (From Motrin) Allergy Unknown SWELLING, Verified 09/16/24 20:28 hives, itching latex (Latex) Allergy Unknown RASH Verified 09/16/24 20:28 walnut Allergy Unknown HIVES Verified 09/16/24 20:28 bee pollen (bee stings) Allergy Anaphylaxis Verified 09/16/24 20:28 morphine Allergy Hives Verified 09/16/24 20:28 Latex Allergy Unknown rash Uncoded 09/16/24 20:28 latex Allergy Unknown Rash Uncoded 09/16/24 20:28 peanuts/nuts Allergy Unknown Swelling Uncoded 09/16/24 20:28 Review of Systems Review of Systems: Yes all other systems are reviewed and are negative [facility] Past Medical History Medical History (Updated 09/16/24 @ 22:11 by Torres Franks MD) Sciatica Asthma Social History Social History Alcohol intake: current Alcohol intake frequency: holidays/special occasions only Advance Directives: No Advance Directives Information Provided: No Do you have a plan to hurt others: No Plan Physical Exam ED Vital Signs: Vital Signs - 24 hr 09/16/24 20:27 09/16/24 22:26 09/16/24 22:37 Temperature 97.0 F 98.9 F 98.9 F Pulse Rate 114 H 98 98 Respiratory Rate 22 H 20 20 Blood Pressure 136/97 H 154/92 H 154/92 H Pulse Oximetry 100 99 99 Oxygen Delivery Method Room Air Room Air Room Air BMI result Body Mass Index 41.6 Const Other: The patient is awake and alert. She is pleasant and cooperative. She looks mildly unwell but not in acute distress. Orientation/consciousness: patient oriented x3 HENMT Other: Face is symmetrical. The posterior pharynx is erythematous but without exudate or any tonsillar swelling. The right tympanic membrane is normal. The left tympanic membrane looks quite inflamed. Eyes General: appearance normal, both eyes and all related structures Neck Other: The patient is very tender in the left upper cervical chain although I do not appreciate any definite discrete lymphadenopathy. The neck is otherwise benign and supple. Chest Other: There is some chest wall tenderness Resp Effort & Inspection: normal respiratory effort Auscultation: clear to auscultation bilaterally Cardio Rate: regular rate Rhythm: regular rhythm Heart sounds: S1 normal heart sound present and S2 normal heart sound present GI Other: abdomen is soft and nontender Skin Other: The skin is dry and unremarkable General skin exam: no rashes or lesions noted Neuro General: patient oriented x3, gait normal, tone normal, moves all extremities, no focal motor deficits and CN's II-XI intact bilaterally Extrem Other: There is no calf swelling or tenderness. No asymmetry. No peripheral edema. Course Course Course Narrative: RME performed by Brisa Butts PA-C. Patient is a 39 year old assigned female at presenting to the emergency department with chest pain, ear pain (L), and decreased eating / drinking secondary to vomiting. Detailed physical exam and review of systems are deferred to the forest management teacher. Labs and swabs ordered. Patient placed back in the waiting room pending room availability and results. Medications Administered Discontinued Medications Generic Name Dose Route Start Last Admin Trade Name Freq PRN Reason Stop Dose Admin Doxycycline Monohydrate 100 mg 09/16/24 22:09 09/16/24 22:25 Doxycycline Monohydrate 100 Mg Capsule PO 09/16/24 22:10 100 mg ONCE ONE Administration Medical Decision Making Medical Decision Making MDM Narrative: The patient presents with several days of illness with symptoms primarily suggestive of an upper respiratory or respiratory illness. She has left ear pain. She has sore throat. She has cough. She reports a fever at home of 103.2. She looks mildly unwell but not acutely toxic or septic. She has a negative chest x-ray. Negative rapid strep. Negative COVID, influenza, and RSV. Negative mono spot. White count is mildly elevated at 12.8 but she seems to have chronically mildly elevated white blood counts. Her differential is unremarkable. Clinically there may be some degree of a left otitis media but I think that most of her illness is an undifferentiated acute illness. She will be started on a course of doxycycline in case she has some kind of mycoplasma infection. She should follow up with her PCP. Lab Data 09/16/24 20:43 09/16/24 20:44 Labs: Lab Results 09/16/24 09/16/24 Range/Units 20:43 20:44 WBC 12.8 H (4.8-10.8) X10*3/uL RBC 4.79 (4.20-5.50) X10*6/uL Hgb 14.2 (12.0-16.0) g/dl Hct 41.5 (37.0-47.0) % MCV 86.6 (80.0-98.0) fL MCH 29.6 (27.0-33.0) pg MCHC 34.2 (31.0-35.0) g/dl RDW 13.2 (11.0-16.0) % Plt Count 329 (160-400) X10*3/uL MPV 9.4 (9.4-12.3) fL Immature Gran % (Auto) 0.4 (0.0-0.4) % Neut % (Auto) 69.4 (45-73) % Lymph % (Auto) 25.0 (20-40) % [place] % (Auto) 3.4 (2-11) % Eos % (Auto) 1.5 (0-4) % Baso % (Auto) 0.3 (0-2) % Lymph # (Auto) 3.2 (1.2-4.9) X10*3/uL [place] # (Auto) 0.4 (0.1-1.2) X10*3/uL Eos # (Auto) 0.2 (0.0-0.4) X10*3/uL Baso # (Auto) 0.0 (0.0-0.2) X10*3/uL Abs Immat Gran (auto) 0.05 H (0.00-0.03) X10*3/uL Absolute Neuts (auto) 8.9 H (2.0-8.3) x10*3/uL Absolute Nucleated RBC 0.000 (0.0-0.012) X10*3/uL Nucleated RBC % (auto) 0.0 (0.0-0.2) /100WBC PT 11.5 (10.9-12.4) SEC INR 1.0 (0.9-1.1) Sodium 143 (135-145) mmol/L Potassium 3.2 L (3.3-5.1) mmol/L Chloride 112 H (96-108) mmol/L Carbon Dioxide 23 (22-29) mmol/L Anion Gap 11 L (12-20) BUN 10 (9-16) mg/dL Creatinine 0.67 (0.5-1.4) mg/dL Estim Creat Clear Calc 143.0 Estimated GFR > 60 Random Glucose 128 H (60-115) mg/dL Calcium 8.6 D (8.4-10.2) mg/dL Magnesium 1.8 (1.6-2.6) mg/dL Total Bilirubin 0.3 (0.0-1.0) mg/dL AST 19 (5-31) U/L ALT 30 (0-31) U/L Alkaline Phosphatase 99 (39-117) U/L Troponin I High Sens < 2.7 (<3.5-17.0) ng/L Total Protein 7.0 (6.5-8.0) g/dL Albumin 4.1 (3.5-5.0) g/dL Monoscreen Negative (Negative) Influenza Type A (PCR) NEGATIVE (Negative) Influenza Type B (PCR) NEGATIVE (Negative) RSV RNA Qual (PCR) NEGATIVE (Negative) SARS-CoV-2 RNA (RT-PCR) NEGATIVE (Negative) S. pyogenes GrpA AMOR Negative (Negative) Discharge Plan Discharge Clinical Impression: Acute left otitis media Patient Disposition: Home, Self-Care Additional Instructions: your testing in the emergency room today seems very reassuring. Your chest x-ray is negative. Your strep tested negative. You have tested negative for COVID. You have tested digging into for mononucleosis. Other blood testing is reassuring. I think that the majority of your symptoms are probably related to a significant viral illness. You may have some degree of a bacterial left ear infection. You were therefore started on the antibiotic doxycycline. Please take this medication 2 times a day. Please continue to take acetaminophen ( Tylenol) as needed for fever and discomfort. Drink lot of fluid. Rest and take it easy. Contact your regular doctor in a couple of days if not improving and get rechecked as needed. Return to the emergency room if significantly worse. Prescriptions: New doxycycline monohydrate 100 mg capsule 100 mg PO BID 8 Days Qty: 16 0RF No Action cefdinir 300 mg capsule 300 mg PO BID Qty: 14 0RF phenazopyridine [Pyridium] 200 mg tablet 200 mg PO TID PRN (Reason: pain) Qty: 6 0RF tramadol 50 mg tablet 50 - 100 mg PO Q6H PRN (Reason: pain) Qty: 20 0RF ondansetron 4 mg tablet,disintegrating 4 mg PO Q6H PRN (Reason: nausea and vomiting) Qty: 10 0RF cyclobenzaprine 10 mg tablet 10 mg PO TID PRN (Reason: pain) Qty: 14 0RF cefuroxime axetil 250 mg tablet 250 mg PO BID 7 Days Qty: 14 0RF ondansetron 4 mg tablet,disintegrating 4 mg PO Q6-8H PRN (Reason: nausea and vomiting) Qty: 10 0RF tramadol 50 mg tablet 50 mg PO Q6H PRN (Reason: pain) Qty: 20 0RF cyclobenzaprine 10 mg tablet 10 mg PO TID PRN (Reason: muscle spasm) Qty: 20 0RF Rx Instructions: Do not drive or work after taking this medication, it may make you feel drowsy oxycodone 5 mg tablet 5 mg PO BID PRN (Reason: pain) Qty: 8 0RF Rx Instructions: Partial Fill upon patient request. Referrals: Ross Flores MD [Physician, Internal Medicine] Interventions: ED Discharge Assessment Last Done: 09/16/24 22:37 Discharge Date/Time: 09/16/24 22:38 Print Language: Danish
--- NOTE | 2024-09-16 20:25 | ECG_ITS ---
Test Reason : CHEST PAIN Blood Pressure : */* mmHG Vent. Rate : 108 BPM Atrial Rate : 108 BPM P-R Int : 130 ms QRS Dur : 80 ms QT Int : 348 ms P-R-T Axes : 52 33 3 degrees QTcB Int : 466 ms Sinus tachycardia Nonspecific T wave abnormality Abnormal ECG When compared with ECG of 13-Aug-2010 07:39, No significant changes seen Referred By: Brisa Butts Electronically Signed By: FARIDA OBREGON MD
[2024-09-16 20:27] VITALS: BP 136/97; PULSE 114; RESP 22; TEMP 36.1; O2SAT 100; BMI 41.6
[2024-09-16 20:49] LABS: MANUAL DIFF FLAG NO
[2024-09-16 20:51] LABS: Hematocrit 41.5 % (37.0-47.0); Hemoglobin 14.2 g/dl (12.0-16.0); Imm Gran Abs Auto 0.05 X10*3/uL (0.00-0.03); Imm Gran Pct Auto 0.4 % (0.0-0.4); Lymphocytes Absolute Auto 3.2 X10*3/uL (1.2-4.9); Mean Corpuscular HGB Conc 34.2 g/dl (31.0-35.0); Mean Corpuscular Hemoglobin 29.6 pg (27.0-33.0); Mean Corpuscular Volume 86.6 fL (80.0-98.0); NRBC Abs Auto 0.000 X10*3/uL (0.0-0.012); NRBC Pct Auto 0.0 /100WBC (0.0-0.2); Platelet Count 329 X10*3/uL (160-400); Red Blood Count 4.79 X10*6/uL (4.20-5.50); White Blood Count 12.8 X10*3/uL (4.8-10.8)
[2024-09-16 20:59] LABS: INTERNATIONAL NORM RATIO 1.0 (0.9-1.1); Prothrombin Time 11.5 SEC (10.9-12.4)
[2024-09-16 21:05] LABS: Alanine Aminotransferase 30 U/L (0-31); Albumin Level 4.1 g/dL (3.5-5.0); Alkaline Phosphatase 99 U/L (39-117); Anion Gap 11 (12-20); Aspartate Amino Transferase 19 U/L (5-31); Blood Urea Nitrogen 10 mg/dL (9-16); Calcium 8.6 mg/dL (8.4-10.2); Carbon Dioxide 23 mmol/L (22-29); Chloride 112 mmol/L (96-108); Creatinine Clr Calc Pharmacy 143.0; Estimated Glomerular Filt Rate > 60; IDNOW Serial# 55D5AD1C; Magnesium 1.8 mg/dL (1.6-2.6); Potassium 3.2 mmol/L (3.3-5.1); Sodium 143 mmol/L (135-145); Strep A Nucleic Acid Negative (Negative); Total Protein 7.0 g/dL (6.5-8.0)
[2024-09-16 21:13] LABS: Troponin-I High Sensitivity < 2.7 ng/L (<3.5-17.0)
[2024-09-16 21:28] LABS: Resp Syncy Virus RNA Qual PCR NEGATIVE (Negative); SARS COV2 PCR INHOUSE NEGATIVE (Negative)
--- OUTSIDE RECORDS SUMMARY | 2024-09-16 22:13 | XMS_ITS | Data Portability ---
Author Organization [place] - [facility] [place], [place] [place] Address [address] [place] [address] Assessment Encounter Date Assessment Date Assessment LastModified by Organization Details LastModified Time 11/06/2022 11/06/2022 I have reviewed the patients paperwork and I cannot complete it at this time supporting that she is disabled, in the short term or the long. 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 She does have low back pain with sitting for long periods of time, but this can be helped with accommodation of frequent breaks to stand and stretch. I have discussed this with the patient who verbalizes understanding. [email or web address] Not available 11/13/2022 14:42:21 Plan of Treatment Reminders Order Date Submit Date Provider Last Modified By Organization Details Last Modified Time Details Appointments None recorded. Lab None recorded. Referral physical therapist referral - Evaluation and treatment of chronic left lower extremity pain, weakness and instability . 2022 023 [facility], [address] [place] [address], [id number], 4 09:31:02 physical therapist referral - Evaluation and treatment of chronic right lower extremity pain, weakness and instability . 2022 023 [email or web address] [facility], [address] [place] [address], [id number], 4 09:31:03 claims auditor referral 2022 023 [email or web address] 4 Anmol Rao MD, [address] [facility] [address], [place], [address], 3 12:42:50 Procedures None recorded. Surgeries None recorded. Imaging None recorded. Medication Orders diclofenac 1 % topical gel 2022 023 [facility] #[id number], [address], [place], [id number], 3 15:31:12 clotrimazol e 1 % vaginal cream 2022 023 [facility] #[id number], [address], [place], [id number], 3 15:45:15 cyclobenzap rine 5 mg tablet 2022 023 [address] [id number] [address] [place] [address], [address], 3 15:27:17 EpiPen 2-Umberto 0.3 mg/0.3 mL injection, auto-inject or [address] [id number] [address] [place] [address], [address], 3 10:19:05 ondansetron 4 mg disintegrat ing tablet 2022 023 [address] [facility] [id number] [address] [place] [address], [address], 3 08:36:20 tramadol 50 mg tablet 2022 023 [address] [facility] [address] [id number], [address] [place] [address], [address], 3 08:34:55 EpiPen 2-Umberto 0.3 mg/0.3 mL injection, auto-inject or [address] [id number] [address] [place] [address], [address], 08:55:08 Patient TargetsNo targets recorded. Patient Instructions Encounter Date Encounter Id Patient Instructions Last Modified By Organization Details Last Modified Time 08/07/2022 [id number] food allergy: care instructions [email or web address] Not available 08/07/2022 08:55:06 aspiration pneumonia: care instructions [email or web address] Not available 08/07/2022 12:07:00 08/28/2022 [id number] nausea and vomiting: care instructions [email or web address] Not available 08/28/2022 15:37:59 miscarriage: car e instructions Not available 08/28/2022 16:43:09 09/25/2022 [id number] food allergy: care instructions [email or web address] Not available 09/25/2022 10:19:02 01/14/2023 [id number] insomnia: care instructions [email or web address] Not available 01/14/2023 15:31:05 candidiasis: car e instructions [email or web address] Not available 01/14/2023 15:31:05 Reason for Referral Outpatient Therapist Referral for Food anaphylaxis Referring Physician: Gaston Cosby [facility], Encounter Date: 09/25/2022 Physical Therapist Referral for Pain in left lower limb Evaluation and treatment of chronic left lower extremity pain, weakness and instability. Referring Physician: Gaston Cosby [facility], Encounter Date: 11/06/2022 Physical Therapist Referral for Pain in right lower limb Evaluation and treatment of chronic right lower extremity pain, weakness and instability. Referring Physician: Gaston Cosby [facility], Encounter Date: 11/06/2022 Problems Name Problem SNOMED Code Status Onset Date Resolution Date Notes Provider Name and Address Organization Details Recorded Time Pain in left lower limb 204195776 Active 2022 Gaston mays [facility] 3 14:55:51 Pain in right lower limb 988000644 Active 2022 Gaston mays [facility] 3 14:55:55 Morbid obesity 251211610 Active 2022 Gaston mays [facility] 3 14:55:49 Dysuria 78553142 Completed 202206/01/2022 Removal Reason: resolved Gaston mays, [facility] 3 14:55:34 Attentio n deficit hyperact ivity disorder 085962822 Active 2022 Gaston mays, [facility] 3 14:55:43 Acute urinary tract infectio n 254038903 Completed 202206/01/2022 Removal Reason: resolved Gaston mays, [facility] 3 10:25:05 Pain of left ankle joint 42375065935 791168 Active 2022 Gaston mays, [facility] [place] 3 14:56:08 Pain of right ankle joint 57405143852 134796 [facility] 2022 [facility] 3 14:55:59 Low back pain co-occur rent with neuralgi a of right sciatic nerve 90954931794 9105 Active 2022 [facility] 3 14:55:46 Aspirati on pneumoni a 441970386 Active 2022 Gaston mays, [facility] 3 12:12:37 Food anaphyla xis 34314345 Active 2022 Gaston mays, [facility] 3 15:14:45 Nausea and vomiting 12585467 Active 2022 Gaston mays, [facility] 3 15:35:43 Miscarri age 28902084 Active 2022 [facility] 3 16:36:27 Acute urinary tract infectio n 354030823 Active 2022 Gaston mays [facility] 3 10:25:05 Candidal vulvovag initis 48645345 Active 2022 Gaston mays [facility] 3 15:28:21 Insomnia 495769874 Active 2022 Gaston mays [facility] 3 15:30:33 Problem Notes None recorded. Procedures Surgical History Date Name Laterality Status Provider Name and Address Organization Details Recorded Time 01/15/20 HOLD CODE: TELE completed Gaston Cosby [facility] 01/13/2023 14:14:02 01/15/20 23 O-Iwkesqp-ZK reporting statement for CMS completed Gaston Cosby [facility] 01/13/2023 14:14:02 01/08/20 23 HOLD CODE: TELE cancelled Gaston Cosby [facility] 01/06/2023 10:01:48 01/08/20 23 Y-Gamwvsc-JV reporting statement for CMS cancelled Gaston Cosby [facility] 01/06/2023 10:01:48 11/07/19 23 HOLD CODE: TELE completed Alison Chowdarya [facility] 11/06/2022 13:54:13 11/07/19 23 S-Burqhdv-AE reporting statement for CMS [facility] 11/06/2022 13:54:13 09/26/19 23 HOLD CODE: TELE completed Alison Chowdarya [facility] 09/25/2022 09:52:47 09/26/19 23 O-Nyudnud-TI reporting statement for CMS completed Alison Chowdarya [facility] 09/25/2022 09:52:47 08/29/19 23 HOLD CODE: TELE completed Gaston Cosby [facility] 08/27/2022 16:20:16 08/29/19 23 T-Rmokdmi-CU reporting statement for CMS completed Gaston Cosby [facility] 08/27/2022 16:20:16 08/08/19 23 HOLD CODE: TELE completed Gaston Cosby [facility] 08/07/2022 08:54:53 08/08/19 23 Z-Ciiirjj-QN reporting statement for CMS completed Gaston Cosby [facility] 08/07/2022 08:54:53 07/25/19 23 HOLD CODE: TELE completed Alison Hair [facility] 07/24/2022 16:39:25 07/25/19 23 J-Qufiepj-BQ reporting statement for [facility] 07/24/2022 16:39:25 06/27/19 23 HOLD CODE: TELE completed Gaston Cosby [facility] 06/26/2022 09:32:15 06/27/19 23 W-Yknbraj-HS reporting statement for [facility] completed Gaston Cosby [facility] 06/26/2022 09:32:15 03/15/19 05 Cholecystectomy completed [facility] 04/28/2022 12:23:39 Hand Surgery completed [facility] 04/28/2022 12:24:15 Imaging Results None recorded. Procedure Notes None recorded. Medical Equipment None Reported. Allergies Allergen ID Allergen Name Allergen Category Reaction Reaction Severity Criticality Documentation Date Start Date Code Code System Note Provider Name and Address Organization Details Recorded Time 568925 ibuprofen medicatio n itching respirato ry distress Not available Not available Not available 04/28/2022 5640 RxNorm Jm mays [facility] 3 11:33:41 738221 latex environme nt,medica tion itching rash Not available Not available Not available 04/28/2022 54419 91 RxNorm Willa Donahue [facility] 3 12:13:03 912848 peanut allergeni c extract food,medi cation anaphylax is itching respirato ry distress Not available Not available Not available Not available 05/01/2022 50316 8 RxNorm Jm Rivera [facility] 3 11:33:41 Medications Name Sig Start Date Stop Date Status Note LastModified by Organization Details LastModified Time cyclobenzap rine 10 mg tablet TAKE 1 TABLET BY MOUTH EVERY DAY AT BEDTIME 06/26 completed Not Available Not Available Not Available amoxicillin 500 mg capsule TAKE 1 CAPSULE BY MOUTH EVERY 8 HOURS UNTIL FINISHED 06/26 completed Not Available Not Available Not Available Vitamin B-6 25 mg tablet TAKE 1 TABLET BY MOUTH THREE TIMES DAILY NEEDED FOR NAUSEA OR VOMITING active Not Available Not Available No t Available cefuroxime axetil 250 mg tablet 01/12 completed Not Available Not Available Not Available clindamycin HCl 300 mg capsule TAKE ONE CAPSULE BY MOUTH EVERY 8 HOURS UNTIL FINISHED 06/26 completed Not Available Not Available Not Available loperamide 2 mg capsule PLEASE SEE ATTACHED FOR DETAILED DIRECTION S 06/26 completed Not Available Not Available Not Available trazodone 50 mg tablet TAKE 1 TABLET BY MOUTH EVERYDAY AT BEDTIME 01/14 completed Not Available Not Available Not Available phenazopyri dine 200 mg tablet Take 1 tablet 3 times a day by oral route for 2 days. 01/12 completed Not Available Not Available Not Available famotidine 40 mg tablet TAKE 1 TABLET (40 MG TOTAL) BY MOUTH EVERY DAY FOR 5 DAYS 01/12 completed Not Available Not Available Not Available prednisone 20 mg tablet TAKE 1 TABLET BY MOUTH TWICE A DAY FOR 5 DAYS 01/12 completed Not Available Not Available Not Available clotrimazol e 1 % vaginal cream Insert one applicato rful (approxim ately 5 g) daily for 7 days active Not Available Not Available No t Available acetaminoph en 300 mg-codeine 30 mg tablet TAKE ONE TABLET BY MOUTH EVERY 8 HOURS NEEDED 06/26 completed Not Available Not Available Not Available sulfamethox azole 800 mg-trimetho prim 160 mg tablet TAKE 1 TABLET BY MOUTH EVERY 12 HOURS 01/12 completed Not Available Not Available Not Available tramadol 50 mg tablet TAKE 1 TABLET BY MOUTH EVERY DAY FOR 14 DAYS 01/12 completed Not Available Not Available Not Available docusate sodium 100 mg capsule TAKE ONE CAPSULE BY MOUTH TWICE DAILY NEEDED FOR CONSTIPAT ION active Not Available Not Available No t Available Banophen 25 mg capsule TAKE 2 CAPSULES (50 MG TOTAL) BY MOUTH EVERY 6 (SIX) HOURS NEEDED FOR ALLERGIES . active Not Available Not Available No t Available epinephrine 0.3 mg/0.3 mL injection, auto-inject or ADMINISTE RED DIRECTED ON THE PACK NEEDED FOR ANAPHYLAC TIC REACTION. active Not Available Not Available No t Available methylpredn isolone 4 mg tablets in a dose pack TAKE 6 TABLETS ON DAY 1 DIRECTED ON PACKAGE AND DECREASE BY 1 TAB EACH DAY FOR A TOTAL OF 6 DAYS 07/24 completed Not Available Not Available Not Available ondansetron 4 mg disintegrat ing tablet PLACE 2 TABLET ON THE TONGUE TWICE A DAY NEEDED FOR 7 DAYS 01/12 completed Not Available Not Available Not Available doxycycline hyclate 100 mg tablet Take 1 tablet twice a day by oral route for 7 days. 01/12 completed Not Available Not Available Not Available oxycodone 5 mg tablet TAKE 1 TABLE BY MOUTH EVERY 6 HOURS NEEDED FOR BREAKTHRO UGH PAIN FOR UP TO 3 DAYS. MAX 4 TAB/DAY 06/26 completed Not Available Not Available Not Available Vitamin 27 mg iron-0.8 mg tablet 01/14 completed Not Available Not Available Not Available cyclobenzap rine 5 mg tablet TAKE 1 TABLET BY MOUTH EVERY NIGHT AT BEDTIME 01/14 completed Not Available Not Available Not Available Sleep Aid (doxylamine ) 25 mg tablet active Not Available Not Available Not Available Flovent HFA 110 mcg/actuati on aerosol inhaler TAKE 2 PUFFS BY MOUTH TWICE A DAY active Not Available Not Available No t Available Take 1 vitamin by mouth daily. active Not Available Not Available No t Available diclofenac 1 % topical gel APPLY 2 GRAMS TO THE AFFECTED AREA(S) BY TOPICAL ROUTE 4 TIMES PER DAY NEEDED 2022 active Not Available Not Available Not Avai lable Vitals None Recorded Social History Question Answer Notes LastModified by Organizat ion Details LastModified Time Tobacco Smoking Status Current Every Day Smoker Alison Hair [facility] 06/26/2022 08:46:50 Do You Have An Advance Directive? No [email or web address] Information not available 06/26/2022 What Type Of Diet Are You Following? REGULAR [email or web address] Information not available 06/26/2022 What Is The Highest Grade Or Level Of School You Have Completed Or The Highest Degree You Have Received? OT75056-5 [email or web address] Information not available 06/26/2022 How Many Days Of Moderate To Strenuous Exercise, Like A Brisk Walk, Did You Do In The Last 7 Days? 0 [email or web address] Information not available 06/26/2022 A. General Health: In General Would You Say Your Health Is? Poor [email or web address] Information not available 04/28/2022 B. Screening: Do You Feel Isolated From Family And Friends? No [email or web address] Information not available 04/28/2022 C. Incontinence Screening: Do You Find It Hard To Control Your Bladder? No [email or web address] Information not available 04/28/2022 E. Oral Health: How Often During The Past 4 Weeks Have You Been Bothered By Teeth Or Dentures? Sometimes [email or web address] Information not available 04/28/2022 D. Sexual Health: How Often During The Past 4 Weeks Have You Been Bothered By Sexual Problems? Never [email or web address] Information not available 04/28/2022 Do You Have Any Barriers To Taking Your Medications As Prescribed? No Barriers. I Am Able To Take As Prescribed. [email or web address] Information not available 04/28/2022 Have You Had An Unplanned Hospital Admission In The Last Year? Yes Information not available 05/01/2022 Have You Had An Unplanned Hospital Admission In The Last 30 Days? Yes [email or web address] Information not available 04/28/2022 Have You Had An ER Visit Since You Were Last Seen? Yes Information not available 05/01/2022 Do You Have A Medical Power Of Food Equipment Service Technician? No Information not available 06/26/2022 What Was The Date Of Your Most Recent Tobacco Screening? 04/28/2022 [email or web address] Information not available 06/26/2022 How Many Children Do You Have? 5 [email or web address] Information not available 04/28/2022 What Is Your Current Pack Years? 20-29packyears Information not available 06/26/2022 Do You Use Protection During Sex? No [email or web address] Information not available 06/26/2022 What Is Your Relationship Status? [email or web address] Information not available 06/26/2022 Do You Use Your Seat Belt Or Car Seat Routinely? Yes [email or web address] Information not available 06/26/2022 Are You Sexually Active? Yes [email or web address] Information not available 06/26/2022 At What Age Did You Start Smoking Tobacco? 15 [email or web address] Information not available 06/26/2022 Are There Any Smokers In Your House? No [email or web address] Information not available 06/26/2022 How Much Tobacco Do You Smoke? 0.5 PPD Information not available 06/26/2022 Do You Use Sunscreen Routinely? No [email or web address] Information not available 06/26/2022 Has Tobacco Cessation Counseling Been Provided? No Information not available 06/26/2022 How Many Years Have You Smoked Tobacco? 21 Information not available 06/26/2022 How Many Days In The Past Year Have You Consumed 4 Or More Drinks? 3 [email or web address] Information no t available 04/28/2022 Sex: Unknown Functional Status Question Answer Note LastModified by Organizat ion Details LastModified Time Do you use any illicit or recreational drugs? No Information not available 06/26/2022 Do you or have you ever used any other forms of tobacco or nicotine? No Information not available 05/01/2022 What is your level of alcohol consumption? None [email or web address] Information not available 06/26/2022 Are you currently employed? No [email or web address] Information not available 06/26/2022 Mental Status Question Answer Note LastModified by Organizat ion Details LastModified Time Do you feel stressed (tense, restless, nervous, or anxious, or unable to sleep at night)? SM0011-5 [email or web address] Information not available 06/26/2022 Do you have difficulty concentrating, remembering or making decisions? No [email or web address] Information no t available 06/26/2022 Family History Relationship Description Onset Age of this Age Resolved Age Notes LastModified by Organization Details LastModified Time Maternal Grandmother Diabetes mellitus [email or web address] Not available 2022 11:33:41 Maternal Grandmother Hypertensive disorder Not available 2022 11:33:41 Mother Hypertensive disorder [email or web address] Not available 2022 11:33:41 Mother Asthma [email or web address] Not available 0 05/01/2022 11:33:41 Mother Diabetes mellitus [email or web address] Not available 13:05:48 Mother Hypertensive disorder [email or web address] Not available 13:05:48 Medical History Condition Response Other N Tonsil Infections Y Depression N Muscle, Joint, or Bone Problems Y Autoimmune disease N Colon Disease/Disorder N Vision or Eye Problems Y Skin Condition N High blood pressure N Elevated Cholesterol/Triglycerides N Anxiety Y Ear or Hearing Problems Y Coronary Artery Disease (CAD) N Peripheral Vascular Disease (PVD) N Osteopenia/Osteoporosis N Heart Attack N Substance Abuse N GERD/Reflux Y Hepatitis N Thyroid Disease/Disorder N Stroke (CVA) N COUNSELING DIRECTOR Disease/Disorder N Colon Cancer N Breast Cancer N Glaucoma N Nasal or Sinus Problems N Liver Disease/Disorder N Respiratory Disease/Disorder N Mood Disorder, other N Cancer, other N Neurologic Disease/Disorder N Blood Clot (DVT/PE) N Anemia N Kidney Disease/Disorder N Diabetes N Seizures/Epilepsy N Urinary Disease/Disorder N Bipolar Disorder N Sleep Apnea Y Heart Failure N Gynecological HistoryNo gynecological history recorded. Obstetrics History GPAL:G 0 P 0 0 0 0 Immunizations Vaccine Type Date Status Note Provider Nam e and Address Organization Details Recorded Time COVID-19, mRNA, LNP-S, PF, 100 mcg/0.5mL dose or 50 mcg/0.25mL dose 1 completed Alison Hair [facility] 09/25/2022 09:53:27 Tdap 0 [facility] [place] 09/25/2022 09:53:27 Tdap 3 completed Alison Hair [facility] 09/25/2022 09:53:27 Influenza, split virus, trivalent, preservative 3 [facility] [place] 09/25/2022 09:53:27 Influenza, split virus, quadrivalent, PF 8 [facility] [place] 09/25/2022 09:53:27 Past Encounters Encounter ID Performer Location Encounter Start Date Encounter Closed Date Diagnosis/Indication Diagnosis SNOMED-CT Code Diagnosis ICD10 Code Diagnosis Note [id number] Gaston CosbyRAGHU VM_[place] [facility] ([facility]) [address] [place] [address] 04/28/2022 12:05:37 05/01/2022 02:08:22 Pain in left lower limb 777523929 M79.605 DDx: OA, stress fracture, meniscal tear, ligament sprain, dependent edema, RAChronic bilateral lower extremity pain and weakness. No trauma proceeding symptoms, however stress fracture is certainly in the differenti al. 1. Tramadol as needed for severe pain. Benefits vs risks of the medication have been discussed. Pt will monitor and report any side effects. Pt will take Tylenol for mild to moderate pain. Controlled substance contract signed, MANUFACTURING TECHNICIAN reviewed and pt will return tomorrow for urine drug screen. I have discussed with pt that I will only provide this medication until she is connected with either orthopedic s or pain management .2. Cyclobenza mali at bedtime as needed for muscle spasms. Advised not to take with Tramadol.3 . Xrays ordered for review, r/out OA vs fracture vs other. Will refer to orthopedic s or pain management as indicated. 4. PT referral placed.5. Encouraged applicatio n of ice or heat to affected joints, on 20 minutes, every 2 hours as needed.6. Continue to elevate legs while at rest.7. Will attempt to find DME supplier that will accept the patients insurance for compressio n stockings. 8. Pt will follow up in 1 month or sooner as needed. Pt will report any deteriorat ing symptoms. If no improvemen t may require MRI imaging. Pain in ri ght lower limb 170182906 M79.604 DDx: OA, stress fracture, meniscal tear, ligament sprain, dependent edema, RA.Chronic bilateral lower extremity pain and weakness. No trauma proceeding symptoms, however stress fracture is certainly in the differenti al. 1. Tramadol as needed for severe pain. Benefits vs risks of the medication have been discussed. Pt will monitor and report any side effects. Pt will take Tylenol for mild to moderate pain. Controlled substance contract signed, MANUFACTURING TECHNICIAN reviewed and pt will return tomorrow for urine drug screen. I have discussed with pt that I will only provide this medication until she is connected with either orthopedic s or pain management .2. Cyclobenza mali at bedtime as needed for muscle spasms. Advised not to take with Tramadol.3 . Xrays ordered for review, r/out OA vs fracture vs other. Will refer to orthopedic s or pain management as indicated. 4. PT referral placed.5. Encouraged applicatio n of ice or heat to affected joints, on 20 minutes, every 2 hours as needed.7. Will attempt to find DME supplier that will accept the patients insurance for compressio n stockings. 6. Continue to elevate legs while at rest.7. Will attempt to find DME supplier that will accept the patients insurance for compressio n stockings. 8. Pt will follow up in 1 month or sooner as needed. Pt will report any deteriorat ing symptoms. If no improvemen t may require MRI imaging. Morbid obesity 886068286 E66.01 Z68.42 Patient continues to work towards weight loss by improving diet and exercise. She recognizes that weight loss may improve her bilateral lower extremity symptoms.M edication and or referral support will be provided as clinically indicated. [id number] [facility] [address] [place] [address] 05/01/2022 11:07:30 05/04/2022 03:20:38 Attention deficit hyperactivity disorder 604857266 F90.9 This patient does not have ADHD, correct diagnosis as below. Pain in le ft lower limb 789499671 M79.605 Taking Tramadol for pain and UDS performed. Pain in ri ght lower limb 894617836 M79.604 Dysuria 64222175 R30.0 Urine dip negative for leukocytes , nitrates, positive for blood; sent for culturePyr idium prescribed for discomfort Pt will call back early next week if symptoms persist, or go to walk in this weekendAdv ised to stay well hydrated, void frequently , and avoid carbonated or caffeinate d beverages and alcohol. [id number] Gaston Cosby NP _[place] ([facility]) [address] [place] [address] 05/19/2022 13:28:46 05/25/2022 13:53:02 Low back pain co-occurrent with neuralgia of right sciatic nerve [id number] 78852 M54.41 DDx: lumbago, sciatica, muscle strain, lumbar disc herniation , spinal stenosis, tendonitis , bursitis.P t endorses severe low back pain and symptoms consistent of sciatica. No trauma proceeding symptoms, and x-ray imaging not indicated at this time Plan as follows: 1. Steroid burst for sciatic pain. Discussed medication use, benefits vs risk, and side effects to monitor and report.2. Cyclobenza mali increased to 10mg at bedtime for low back muscle spasms and stiffness3 . Additional PT referral sent to address low back sciatic pain. Will consider further imaging if no improvemen t in 6 weeks.4. May use OTC Tylenol as needed for pain5. Applicatio n of heat or ice, on 20 minutes, every 2 hours as needed.6. Gentle stretching and ROM daily.7. Keep scheduled follow up in 1 week. [id number] Gaston Cosby RESEARCH COORDINATOR VM_MA_[facility]i [facility] ([facility]) [address] [place] [address] 05/26/2022 10:44:21 07/02/2022 03:36:25 Low back pain co-occurrent with neuralgia of right sciatic nerve [id number] M54.41 DDx: lumbago, sciatica, muscle strain, lumbar disc herniation , spinal stenosis, tendonitis , bursitis.L ow back pain and sciatica minimally improved. No trauma proceeding symptoms, and x-ray imaging not indicated at this time Plan as follows: 1. Continue cyclobenza mali at bedtime for low back muscle spasms and stiffness3 . Pt has PT appointmen t pending4. May use OTC Tylenol as needed for pain5. Applicatio n of heat or ice, on 20 minutes, every 2 hours as needed.6. Gentle stretching and ROM daily.7. Follow up in 4 weeks after initiating PT. Pain in le lower limb [id number] M79.605 Chronic lower extremity pain, weakness and edema. 1. Pt may continue Tramadol as needed for severe pain. Benefits vs risks of the medication have been discussed and pt cautioned to use sparingly. Pt will monitor and report any side effects. Pt will take Tylenol for mild to moderate pain. I have discussed with pt that I will only provide this medication until she is connected with her pending referrals. 2. PT appointmen t pending3. Podiatry referral placed and pt has contact info for referrals4 . Pt will attempt to purchase compressio n stockings. We discussed measuring for correct size and compressio n strength 20-30 mmHg.5. Encouraged applicatio n of ice or heat to affected joints, on 20 minutes, every 2 hours as needed.6. Continue to elevate legs while at rest.7. Follow up in 4 weeks after initiating PT. [facility] [id number] M79.604 Chronic lower extremity pain, weakness and edema. 1. Pt may continue Tramadol as needed for severe pain. Benefits vs risks of the medication have been discussed and pt cautioned to use sparingly. Pt will monitor and report any side effects. Pt will take Tylenol for mild to moderate pain. I have discussed with pt that I will only provide this medication until she is connected with her pending referrals. 2. PT appointmen t pending3. Podiatry referral placed and pt has contact info for referrals4 . Pt will attempt to purchase compressio n stockings. We discussed measuring for correct size and compressio n strength 20-30 mmHg.5. Encouraged applicatio n of ice or heat to affected joints, on 20 minutes, every 2 hours as needed.6. Continue to elevate legs while at rest.7. Follow up in 4 weeks after initiating PT. 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 No trauma proceeding symptoms, and x-ray imaging not indicated at this time Plan as follows: 1. Continue cyclobenza mali at bedtime for low back muscle spasms and stiffness3 . Pt will message via the portal with contact informatio n for local PT and I will send referral4. May use OTC Tylenol as needed for pain5. Applicatio n of heat or ice, on 20 minutes, every 2 hours as needed.6. Gentle stretching and ROM daily.7. Follow up in 4 weeks or sooner as needed Pain in [facility] lower limb [id number] M79.605 Chronic lower extremity pain, weakness and edema. No improvemen t since our last visit. 1. Pt may continue Tramadol as needed for severe pain until she is seen by PT. Benefits vs risks of the medication have been discussed and pt cautioned to use sparingly. Pt will monitor and report any side effects. Pt will take Tylenol for mild to moderate pain. I have discussed with pt that I will only provide this medication until she is connected with her pending referrals. 2. PT referral as above.3. Podiatry referral placed and pt has contact info for referrals4 . Pt will attempt to purchase compressio n stockings. We discussed measuring for correct size and compressio n strength 20-30 mmHg.5. Encouraged applicatio n of ice or heat to affected joints, on 20 minutes, every 2 hours as needed.6. Continue to elevate legs while at rest.7. Follow up in 4 weeks after initiating PT. Pain in [facility] lower limb [id number] M79.604 Chronic lower extremity pain, weakness and edema. No improvemen t since our last visit. 1. Pt may continue Tramadol as needed for severe pain. Benefits vs risks of the medication have been discussed and pt cautioned to use sparingly. Pt will monitor and report any side effects. Pt will take Tylenol for mild to moderate pain. I have discussed with pt that I will only provide this medication until she is connected with her pending referrals. 2. PT appointmen t pending3. Podiatry referral placed and pt has contact info for referrals4 . Pt will attempt to purchase compressio n stockings. We discussed measuring for correct size and compressio n strength 20-30 mmHg.5. Encouraged applicatio n of ice or heat to affected joints, on 20 minutes, every 2 hours as needed.6. Continue to elevate legs while at rest.7. Follow up in 4 weeks after initiating PT. 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 No trauma proceeding symptoms, and x-ray imaging not indicated at this time Plan as follows: 1. Continue cyclobenza mali at bedtime for low back muscle spasms and stiffness3 . Pt will message via the portal with contact informatio n for local PT and I will send referral4. May use OTC Tylenol as needed for pain5. Applicatio n of heat or ice, on 20 minutes, every 2 hours as needed.6. Gentle stretching and ROM daily.7. Follow up in 4 weeks or sooner as needed Pain in le ft lower limb [id number] M79.605 Chronic lower extremity pain, weakness and edema. No improvemen t since our last visit. 1. I have discussed with patient that intention of Tramadol was to be short term supply until she connected with referrals which she has not yet been able to. We discussed weaning schedule, which pt is understand ing of. Will supply an additional two weeks, then will reduce to once daily for 2 weeks then discontinu e. Benefits vs risks of the medication have been discussed and pt cautioned to use sparingly. Pt will monitor and report any side effects. Pt will take Tylenol for mild to moderate pain2. PT referral as above.3. I have placed a second orthopedic referral.4 . Pt will attempt to purchase compressio n stockings. We discussed measuring for correct size and compressio n strength 20-30 mmHg.5. Encouraged applicatio n of ice or heat to affected joints, on 20 minutes, every 2 hours as needed.6. Continue to elevate legs while at rest.7. Follow up in 2 weeks Pain in ri ght lower limb [id number] M79.604 Chronic lower extremity pain, weakness and edema. No improvemen t since our last visit. 1. I have discussed with patient that intention of Tramadol was to be short term supply until she connected with referrals which she has not yet been able to. We discussed weaning schedule, which pt is understand ing of. Will supply an additional two weeks, then will reduce to once daily for 2 weeks then discontinu e. Benefits vs risks of the medication have been discussed and pt cautioned to use sparingly. Pt will monitor and report any side effects. Pt will take Tylenol for mild to moderate pain2. PT referral as above.3. I have placed a second orthopedic referral.4 . Pt will attempt to purchase compressio n stockings. We discussed measuring for correct size and compressio n strength 20-30 mmHg.5. Encouraged applicatio n of ice or heat to affected joints, on 20 minutes, every 2 hours as needed.6. Continue to elevate legs while at rest.7. Follow up in 2 weeks [id number] Gaston Cosby NP _CORNELIUS_Jarrett quevedo [facility] ([facility]) [address] [place] [address] 08/07/2022 08:39:44 08/07/2022 11:13:40 Food anaphylaxis [id number] T78.01XD 1. Epi-pen prescribed as needed for anaphylact ic reaction2. Cautioned to avoid known food allergens and must inform restaurant s that she has severe nut allergy3. Discussed alarm s/s for which pt will present to ED4. Follow up in 2 weeks. Aspiration pneumonia [id number] J69.0 Endorses chest congestion and productive cough. No fevers. 1. Continue antibiotic s as prescribed 2. Use rescue inhaler as needed for shortness of breath3. May take OTC Tylenol or Ibuprofen as needed for pain or fever4. Pt will monitor for deteriorat ing or alarm symptoms and will present to ED for evaluation if experienci ng.5. Follow up in 2 weeks. 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 No trauma proceeding symptoms, and x-ray imaging not indicated at this time Plan as follows: 1. Continue cyclobenza mali at bedtime for low back muscle spasms and stiffness2 . Continue to work with PT when able3. May use OTC Tylenol as needed for pain4. Applicatio n of heat or ice, on 20 minutes, every 2 hours as needed.5. Gentle stretching and ROM daily.6. Follow up in 1 month Pain in [facility] lower limb [id number] M79.605 Chronic lower extremity pain, weakness and edema. Minimal improvemen t since our last visit. 1. Pt has had to put PT on hold to recover from miscarriag e We discussed weaning schedule, which pt is understand ing of. Will supply an additional two weeks, then will reduce to once daily for 2 weeks then discontinu e. Benefits vs risks of the medication have been discussed and pt cautioned to use sparingly. Pt will monitor and report any cravings or side effects, which she denies at this time. Pt will take Tylenol for mild to moderate pain2. Continue to work with PT when able3. I have placed a second orthopedic referral.4 . Pt will attempt to purchase compressio n stockings. We discussed measuring for correct size and compressio n strength 20-30 mmHg.5. Encouraged applicatio n of ice or heat to affected joints, on 20 minutes, every 2 hours as needed.6. Continue to elevate legs while at rest.7. Follow up in 1 month. Pain in [facility] lower limb [id number] M79.604 Chronic lower extremity pain, weakness and edema. Minimal improvemen t since our last visit. 1. Pt has had to put PT on hold to recover from miscarriag e We discussed weaning schedule, which pt is understand ing of. Will supply an additional two weeks, then will reduce to once daily for 2 weeks then discontinu e. Benefits vs risks of the medication have been discussed and pt cautioned to use sparingly. Pt will monitor and report any cravings or side effects, which she denies at this time. Pt will take Tylenol for mild to moderate pain2. Continue to work with PT when able3. I have placed a second orthopedic referral.4 . Pt will attempt to purchase compressio n stockings. We discussed measuring for correct size and compressio n strength 20-30 mmHg.5. Encouraged applicatio n of ice or heat to affected joints, on 20 minutes, every 2 hours as needed.6. Continue to elevate legs while at rest.7. Follow up in 1 month. Nausea and vomiting [id number] R11.2 Intermitte nt episodes s/p miscarriag e. 1. Short supply of Zofran as needed for nausea2. Pt will monitor and report deteriorat ing symptoms.3 . Follow up as needed if no improvemen t. Miscarriage [id number] O03 .9 1. Continue to follow Flour Distributor direction2 . Patient will monitor and report deteriorat ing s/s. We discussed having low threshold for returning to ED for evaluation .3. May take B vitamin supplement s for cramping.4 . Pt is doing fair emotionall y, however she will reach out if this should deteriorat e. 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 No trauma proceeding symptoms, and x-ray imaging not indicated at this time Plan as follows: 1. Continue cyclobenza mali at bedtime for low back muscle spasms and stiffness2 . Continue to work with PT when able3. May use OTC Tylenol as needed for pain4. Applicatio n of heat or ice, on 20 minutes, every 2 hours as needed.5. Gentle stretching and ROM daily.6. Follow up in 6 weeks Food anaphylaxis [id number] T78.01XD 1. Epi-pen Rx refilled as needed for anaphylact ic reaction2. Cautioned to avoid known food allergens and must inform restaurant s that she has severe nut allergy. Pt will also avoid seafood.3. Discussed alarm s/s for which pt will present to ED4. Outpatient Therapist referral placed5. Follow up in 6 weeks or sooner as needed. Pain of le ft ankle joint [id number] M25.572 Chronic lower extremity pain, weakness and edema. Minimal improvemen t since our last visit. 1. Continue with PT as scheduled. 2. Tramadol discontinu ed. May take OTC Tylenol as needed for pain. Pt will call with episodes of acute pain and will consider prescribin g steroid burst if so.3. Our office will reach out to Orthopedic referral for scheduling 4. Gentle stretching exercises and ROM daily5. Encouraged applicatio n of ice or heat to affected joints, on 20 minutes, every 2 hours as needed.6. Continu.e to elevate legs while at rest7. Follow up in office in 6 weeks. Pt will call 2 weeks prior to visit if she cannot find a ride and we will attempt to arrange PT-1 transporta tion for her. Pain of ri ght ankle joint [id number] M25.571 Chronic lower extremity pain, weakness and edema. Minimal improvemen t since our last visit. 1. Continue with PT as scheduled. 2. Tramadol discontinu ed. May take OTC Tylenol as needed for pain. Pt will call with episodes of acute pain and will consider prescribin g steroid burst if so.3. Our office will reach out to Orthopedic referral for scheduling 4. Gentle stretching exercises and ROM daily5. Encouraged applicatio n of ice or heat to affected joints, on 20 minutes, every 2 hours as needed.6. Continu.e to elevate legs while at rest7. Follow up in office in 6 weeks. Pt will call 2 weeks prior to visit if she cannot find a ride and we will attempt to arrange PT-1 transporta tion for her. 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 No trauma proceeding symptoms, and x-ray imaging not indicated at this time Plan as follows: 1. Continue cyclobenza mali at bedtime for low back muscle spasms and stiffness2 . Continue to work with PT3. May use OTC Tylenol as needed for pain4. Applicatio n of heat or ice, on 20 minutes, every 2 hours as needed.5. Gentle stretching and ROM daily.6. Follow up in 1 month. Will consider further imaging if no improvemen t. Pain in le lower limb [id number] M79.605 Chronic lower extremity pain of multiple joints, weakness and edema. Minimal improvemen t since our last visit. 1. Referral to PT to work on her lower extremitie s2. May take OTC Tylenol as needed for pain3. Keep upcoming consult with orthopedic s4. Pt will attempt to purchase compressio n stockings. We discussed measuring for correct size and compressio n strength 20-30 mmHg.5. Encouraged applicatio n of ice or heat to affected joints, on 20 minutes, every 2 hours as needed.6. Continue to elevate legs while at rest.7. Follow up in 1 month Pain in ri ght lower limb [id number] M79.604 Chronic lower extremity pain of multiple joints, weakness and edema. Minimal improvemen t since our last visit. 1. Referral to PT to work on her lower extremitie s2. May take OTC Tylenol as needed for pain3. Keep upcoming consult with orthopedic s4. Pt will attempt to purchase compressio n stockings. We discussed measuring for correct size and compressio n strength 20-30 mmHg.5. Encouraged applicatio n of ice or heat to affected joints, on 20 minutes, every 2 hours as needed.6. Continue to elevate legs while at rest.7. 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 No trauma proceeding symptoms, and x-ray imaging not indicated at this time Plan as follows: 1. Cyclobenza mali discontinu ed. This medication was not intended for shelter use. Risk vs benefit of taking while discussed prior to discontinu ing.2. May use OTC Tylenol as needed for pain3. Applicatio n of heat or ice, on 20 minutes, every 2 hours as needed.4. Gentle stretching and ROM daily; pt will implement stretching exercises learned in PT.6. Follow up in 3 months or sooner as needed. Will consider further imaging and another PT referral if no improvemen t. Pt will contact me for acute episodes of increased sciatic pain and I will treat accordingl y. Pain of le ft ankle joint [id number] M25.572 Symptom improvemen t since our last visit, attributed to weight loss and increased activity at work. 1. Orthopedic consult remains pending. I will attempt again to refer to an orthopedis t who accepts the patients insurance. We have had significan t difficulty connecting the patient with orthopedic provider over the last 6 months. I have emphasized to the patient the importance of being seen by specialist for evaluation and further treatment recommenda tions.2. May take OTC Tylenol as needed for pain3. RICE non-pharma cological interventi ons.4. Pt will attempt to purchase compressio n stockings. We discussed measuring for correct size and compressio n strength 20-30 mmHg. Pain of ri ght ankle joint [id number] M25.571 Symptom improvemen t since our last visit, attributed to weight loss and increased activity at work. 1. Orthopedic consult remains pending. I will attempt again to refer to an orthopedis t who accepts the patients insurance. We have had significan t difficulty connecting the patient with orthopedic provider over the last 6 months. I have emphasized to the patient the importance of being seen by specialist for evaluation and further treatment recommenda tions.2. May take OTC Tylenol as needed for pain3. RICE non-pharma cological interventi ons.4. Pt will attempt to purchase compressio n stockings. We discussed measuring for correct size and compressio n strength 20-30 mmHg. Urine preg isabel test positive [id number] Z32.01 Positive urine test. Pt has had initial intake screening with trimmer operator three knife; she has an office visit in a few weeks. Has started pre- vitamins.1 . Continue to follow trimmer operator three knife treatment plan2. Continue daily vitamins3. Healthy diet and lifestyle choices. Avoid alcohol while . Continue to abstain from smoking.4. Monitor for alarm s/s, including abdominal pain, cramping, bleeding, excessive discharge, fevers, aches, chills and present to ED if experienci ng. Candidal vulvovaginitis [id number] B37.31 DDx: juliann vulvovagin itis, trichomona s, BV, increased secretions while S/ s indicative of yeast infection, will treat empiricall y. However, advised patient that if symptoms do not resolve she will need to have vaginitis screening, and further treated as indicated. Insomnia [id number] G47.0 0 Encouraged to trial melatonin for sleeplessn ess.Cyclob enzaprine discontinu ed.Hold on Trazadone until discussed with trimmer operator three knife; patient has not filled medication since August; risk of teratogeni city not expected based on limited human dataPracti ce good sleep hygieneFol low up as needed if no improvemen t. Health Concerns Section Related Observation LastModified by Organization Detai ls LastModified Time None Recorded Concern Status LastModified by Organization Details LastModified Time None Recorded Advance Directives Directive N: Payers Insurance Date Sequence Insurance Name Policy Number Policy Velasquez Covered Member ID Velasquez Member ID Guarantor Name 09/16/2022 1 [facility] HP - DOS PRIOR TO 2022 (MEDICAID REPLACEMENT - HMO) Renee Eckert [id number] Renee Eckert 01/13/2023 1 [facility] HP - DOS ON OR AFTER 2022 - [facility] ACO (MEDICAID REPLACEMENT - HMO) Renee Eckert [id number] Renee Eckert 09/16/2022 1 [place] [facility] Renee Eckert [id number] Renee Eckert Notes Date Note Type Note Provider Name and Address Organization Details Recorded Time 08/07/2022 text/html Renee presents today for hospital follow up. She was seen in the ED on Wednesday for anaphylactic reaction. She has a nut allergy. 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 After beginning her meal she experienced difficulty swallowing and breathing and became non- responsive. EMT's were called and administered Epinephrine and Narcan. She was taken to the hospital, there was some concern for aspiration pneumonia so they administered 1 dose of doxycycline, with intentions of sending Rx course to her pharmacy. They did not do so, so I sent the Rx for the patient. Due to her hospitalization, she missed her recent PT appointment. She does not recall what hospital she was admitted to. She states her discharge paperwork was left in her car which was repossessed. I confirm that I received verbal consent from the patient for the virtual visit. This telemedicine encounter was performed with audio only for the full visit as patient was unable to connect to video. A total of 15 minutes was spent on the call. Location of the Patient: homeLocation of the Provider: officeNames of people participating in the visit: myself and the patient. Gaston [facility] [place] 08/07/2022 12:07:36 08/28/2022 text/html Renee presents today via telemedicine for follow up. 1. MiscarriageThe patient had anaphylactic reaction to food containing nuts about a month ago. She states that 2 weeks ago she had a miscarriage. She was unaware she was . She saw DISTANCE LEARNING UNIT LEADER who suspect the miscarriage was likely due to the physical stress of the anaphylactic episode. She took test yesterday which was negative; no further intervention per DISTANCE LEARNING UNIT LEADER. She does still experience cramping and has had episodes of nausea, but this is improving. She has taken a break from PT per health information technologist direction. She reports being in fair emotional health, and states some things just aren't meant to be. She has a supportive partner.2. Low back pain with right sided sciaticaPt reports minimal improvement in moderate to severe, aching low back pain . She endorses muscle spasms, particularly in the evening. Cyclobenzaprine at bedtime has been helpful for low back spasms.Has been resting from PT as above.3. Lower extremity pain.Pt endorses chronic, moderate bilateral knee and ankle pain. She endorses intermittent lower extremity weakness and edema. She elevates her legs several times daily which helps with the edema. She does not wear compression stockings. She states she has fallen several times due to pain and weakness. She recognizes that weight loss may help improve her symptoms, and that weight may be placing significant stress of her joints. Pt completed x-rays showing degenerative changes of ankle joints and bone spurs. She has an orthopedic referral pending. I confirm that I received verbal consent from the patient for the virtual visit. This telemedicine encounter was performed with audio only for the entire visit as patient was unable to connect to video. Location of the Patient: homeLocation of the Provider: officeNames of people participating in the visit: Myself and the patient A total of 15 minutes was spent on the call. Gaston mays [facility]/ [place] 08/28/2022 16:43:15 09/25/2022 text/html Renee presents today via telemedicine for follow up. 1. Low back pain with right sided sciaticaPt reports minimal improvement in moderate to severe, aching low back pain . She endorses muscle spasms, particularly in the evening. Cyclobenzaprine at bedtime has been helpful for low back spasms.Has been resting from PT due to recent miscarriage, is scheduled to return to PT in a few weeks. Does not feel she is able to return to work at this time and requesting paperwork to be filled out for short term disability.2. Lower extremity pain.Pt endorses chronic, moderate bilateral knee and ankle pain. She endorses intermittent lower extremity weakness and edema. She elevates her legs several times daily which helps with the edema. She does not wear compression stockings. She states she has fallen several times due to pain and weakness. She recognizes that weight loss may help improve her symptoms, and that weight may be placing significant stress of her joints. Pt completed x-rays showing degenerative changes of ankle joints and bone spurs. She has an orthopedic referral pending that she has not yet heard from. 3. Food anaphylaxisPt has had a recent episode of food anaphylaxis when she accidentally consumed peanuts at a restaurant. She was taken to ED and several rounds of epinepherine were administered. She reports today that she has had similar episode after eating seafood, which resulted in another ED visit to [facility], and several more rounds of epinepherine. She was not previously aware of seafood allergy. She has Rx for epi-pen which she carries on her at all times and is aware of alarm s/s for which to call an ambulance. I confirm that I received verbal consent from the patient for the virtual visit. This telemedicine encounter was performed with audio only for the entire visit due to connectivity problems. Location of the Patient: home Location of the Provider: office Names of people participating in the visit: myself and the patient.A total of 20 minutes was spent in the visit. Gaston mays [facility]/ [place] 09/25/2022 11:27:51 11/06/2022 text/html Renee presents today via telemedicine to follow up on her chronic pain concerns. 1. Low back pain with right sided sciaticaPt reports minimal improvement in moderate to severe, aching low back pain . She endorses muscle spasms, particularly in the evening. Cyclobenzaprine at bedtime has been helpful for low back spasms.She is working with PT for pain management. Does not feel she is able to return to work at this time and requesting paperwork to be filled out for short term disability.No trauma or injury proceeding symptoms2. Lower extremity pain.Pt endorses chronic, moderate bilateral knee and ankle pain. She endorses intermittent lower extremity weakness and edema. Right knee symptoms are worse than left. She elevates her legs several times daily which helps with the edema. She does not wear compression stockings. She states she has fallen several times due to pain and weakness. She recognizes that weight loss may help improve her symptoms, and that weight may be placing significant stress of her joints. Pt completed x-rays showing degenerative changes of ankle joints and bone spurs. X-ray of knees were normal. She has an orthopedic consult in a few weeks. She is not working on her lower extremity symptoms with PT as they stated they only have referral to work on her back. I confirm that I received verbal consent from the patient for the virtual visit. This telemedicine encounter was performed with video enabled for full visit. Location of the Patient: homeLocation of the Provider: officeNames of people participating in the visit: myself and the patient Gaston mays [facility]/ [place] 11/13/2022 14:42:30 01/14/2023 text/html Renee presents today via telemedicine to follow up on her chronic pain concerns. She also reports she has had a positive test recently. 1. Low back pain with right sided sciatica-Pt reports improvement in moderate, chronic, intermittent, aching low back pain . She endorses ongoing muscle spasms, particularly in the evening making sleep difficult. Cyclobenzaprine at bedtime has been helpful for low back spasms and for sleep.-At our last visit she reported that she was still working with PT for pain management, however per PT notes, her last visit was in July.-She has not been able to connect with orthopedic referral due to insurance issues.-No trauma or injury proceeding symptoms-Endorses weight loss of 30lbs. 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 Lower extremity pain.Pt endorses chronic, moderate bilateral knee and ankle pain and edema. Symptoms have improved since losing 30lbs and increased activity on the job. She elevates her legs while at rest which helps with the edema. She does not wear compression stockings. She states she has fallen several times over the last year due to pain and weakness in lower extremities, however no falls recently. Pt completed x-rays showing degenerative changes of ankle joints and bone spurs. X-ray of knees were normal. She had an orthopedic consult scheduled in November, however she reports today that she was unable to go to the appointment as they did not accept her insurance. She is on a wait list at another orthopedics office for consult. 3. Positive urine test-Endorses positive urine test and she has had initial screening visit with trimmer operator three knife. She is taking a daily vitamin. No nausea or vomiting. She does endorse recent symptoms of increased vaginal secretions, often common in , however she also endorses pruritis and odor. The [facility] [employer] [facility] has prescribed intravaginal clotrimazole x 7 days, however the patient reports only mild improvement in symptoms. She had missed work today due to these uncomfortable symptoms. I confirm that I received verbal consent from the patient for the virtual visit. This telemedicine encounter was performed with video enabled for full visit. Location of the Patient: home Location of the Provider: office Names of people participating in the visit: myself and the patient [facility]/ [place] 01/14/2023 16:43:38 OBGyn Episode No OBEpisode recorded.
[2024-09-16 22:26] VITALS: BP 154/92; PULSE 98; RESP 20; TEMP 37.2; O2SAT 99
[2024-09-16 22:37] VITALS: BP 154/92; PULSE 98; RESP 20; TEMP 37.2; O2SAT 99
[2024-09-17 09:09] LABS: Chlamydia pneumoniae PCR Not Detected (Not Detect.); Coronavirus 229E PCR Not Detected (Not Detect.); Coronavirus HKU1 PCR Not Detected (Not Detect.); Coronavirus NL63 PCR Not Detected (Not Detect.); Coronavirus OC43 PCR Not Detected (Not Detect.); RSV PCR Not Detected (Not Detect.); Rhino/Enterovirus PCR Not Detected (Not Detect.)
[2024-09-17 10:23] LABS: Influenza A H1 PCR Not Detected (Not Detect.); Influenza A H1-2009 PCR Not Detected (Not Detect.); Influenza A H3 PCR Not Detected (Not Detect.); SARS-CoV-2 PCR Not Detected (Not Detect.)
== END 2024-09-16 22:38 | disposition home or self-care (01) ==
PROVIDERS: Physician Assistant Medical; Emergency Provider Emergency Medicine
DX: H66.92 Otitis media, unspecified, left ear (principal); R05.9 Cough, unspecified; J02.9 Acute pharyngitis, unspecified; H92.02 Otalgia, left ear; Z03.818 Encounter for observation for suspected exposure to other biological agents ruled out
CPT/HCPCS: 36415; 71046; 80053; 83735; 84484; 85025; 85610; 86308; 87633; 87637; 87651; 93005; 99283; 99284

== ENCOUNTER → 2024-09-16 20:25 | Outpatient (BNV) | payer MEDICAID, SELFPAY | PROVIDERS: Emergency Provider Emergency Medicine; Visit Provider Internal Medicine Cardiovascular Disease | DX: R00.0 Tachycardia, unspecified (principal) | CPT/HCPCS: 93010 ==

== ENCOUNTER → 2024-09-16 20:25 | Outpatient (BNV) | payer MEDICAID, SELFPAY | PROVIDERS: Emergency Provider Emergency Medicine; Visit Provider Radiology Diagnostic Radiology | DX: R07.9 Chest pain, unspecified (principal) | CPT/HCPCS: 71046 ==